=== PATIENT | female | born 1990 | race Two or more races ===

== ENCOUNTER 2024-10-14 11:14 | Emergency (ER) | payer OTHER ==
[~2024-10-14] VITALS: Ht 154.9 cm; Wt 80.1 kg
[2024-10-14 12:12] LABS: Urine Bacteria FEW /hpf (None Seen); Urine Blood Negative /uL (Negative); Urine Clarity Clear (Clear); Urine Color Light-Yellow (Yellow); Urine Protein, UAD Negative (Negative); Urine Specific Gravity 1.018 (1.001-1.035); Urine Urobilinogen Normal (Negative); Urine WBC <1 /hpf (0 - 5)
[2024-10-14 12:17] VITALS: BP 132/93; PULSE 77; RESP 16; TEMP 97.6; O2SAT 100
--- NOTE | 2024-10-14 12:56 | ED.PDOC ---
General HPI Comments A 34 YEAR OLD FEMALE PRESENTS TO THE ED WITH COMPLAINT OF UTI SYMPTOMS. PATIENT STATES SHE HAS BEEN EXPERIENCING A PAINFUL/BURNING SENSATION WITH URINATION FOR THE PAST 2 DAYS. PATIENT REPORTS SHE HAS ALSO HAD SUPRAPUBIC PRESSURE/PAIN FOR THE PAST 2 DAYS. PATIENT DENIES HEMATURIA, FLANK PAIN, VAGINAL DISCHARGE, FEVER, CHILLS, SHORTNESS OF BREATH, CHEST PAIN, ABDOMINAL PAIN, NAUSEA, VOMITING, HEADACHE, OR OTHER COMPLAINTS. NO OTHER SYMPTOMS OR MODIFYING FACTORS AT THIS TIME. PATIENT IS ALERT, ORIENTED X 4, AND HAS STEADY GAIT. Chief Complaint: Urinary Time Seen by MD: 11:35 Reviewed notes: Nurses Notes, Medications, Allergies Allergies: Coded Allergies: NO KNOWN ALLERGIES (Unverified , 10/14/24) Information Source: Patient Mode of Arrival: Ambulatory Severity: Moderate Inability to void: None Timing: Days Duration: Since onset, Days Prehospital treatment: None Onset: Spontaneous Symptoms: Dysuria, Frequency, Urgency History of: None Location: Suprapubic Modifying factors: None associated signs and symptoms: Dysuria, Frequency, Urgency Past Medical History PAST MEDICAL HISTORY: Denies Surgical History: Denies all surgeries RECREATIONAL VEHICLE REPAIRER History: No Pertinent RECREATIONAL VEHICLE REPAIRER History Family History Family History: Reviewed,noncontributory to illness Social History Smoker: Non-Smoker Alcohol: Denies ETOH Use Drugs: Denies Drug Use Lives In: Home Constitutional: denies: chills, diaphoresis, fatigue, fever, malaise, sweats, weakness, others EENTM: denies: blurred vision, double vision, ear bleeding, ear discharge, ear drainage, ear pain, ear ringing, eye pain, eye redness, hearing loss, mouth pain, mouth swelling, nasal discharge, nose bleeding, nose congestion, nose pain, photophobia, tearing, throat pain, throat swelling, voice changes, others Respiratory: denies: cough, hemoptysis, orthopnea, SOB at rest, shortness of breath, SOB with excertion, stridor, wheezing, others Cardiovascular: denies: chest pain, dizzy spells, diaphoresis, Dyspnea on exertion, edema, irregular heart beat, left arm pain, lightheadedness, palpitations, PND, syncope, others Gastrointestinal: denies: abdomen distended, abdominal pain, blood streaked bowels, constipated, diarrhea, dysphagia, difficulty swallowing, hematemesis, melena, nausea, poor appetite, poor fluid intake, rectal bleeding, rectal pain, vomiting, others Genitourinary: reports: burning, dysuria, pain (SUPRAPUBIC PRESSURE); denies: abnormal vagina bleeding, dyspareunia, flank pain, frequency, hematuria, incontinence, , vagina discharge, urgency, others Neurological: denies: dizziness, fainting, headache, left sided numbness, left sided weakness, numbness, paresthesia, pre-existing deficit, right sided numbness, right sided weakness, seizure, speech problems, tingling, tremors, weakness, others Musculoskeletal: denies: back pain, gout, joint pain, joint swelling, muscle pain, muscle stiffness, neck pain, others Integumetry: denies: bruises, change in color, change in hair/nails, dryness, laceration, lesions, lumps, rash, wounds, others Allergic/Immunocompromised: denies: Difficulty Healing, Frequent Infections, Hives, Itching, others Hematologic/Lymphatic: denies: anemia, blood clots, easy bleeding, easy bruising, swollen glands, others Endocrine: denies: excessive hunger, excessive sweating, excessive thirst, excessive urination, flushing, intolerance to cold, intolerance to heat, unexplained weight gain, unexplained weight loss, others Psychiatric: denies: anxiety, bipolar disorder, depression, hopeless, panic d isorder, schizophrenia, sleepless, suicidal, others All Other Systems: Reviewed and Negative Physical Exam General Appearance: No Apparent Distress, Normal HEENT: Normal ENT Inspection, PERRL/EOMI, Pharynx Normal, TMs Normal Neck: Full Range of Motion, Non-Tender, Normal, Normal Inspection Respiratory: Chest Non-Tender, Lungs Clear, No Accessory Muscle Use, No Respiratory Distress, Normal Breath Sounds Cardiovascular: No Edema, No JVD, No Murmur, No Gallop, Normal Peripheral Pulses, Regular Rate/Rhythm Breast Exam: Deferred Gastrointestinal: No Organomegaly, No Pulsatile Mass, Normal Bowel Sounds, Soft, Suprapubic (PRESSURE. ), Tenderness Genitalia: Deferred Pelvic: Deferred Rectal: Deferred Extremities: No calf tenderness, Normal capillary refill, Normal inspection, Normal range of motion, Non-tender, No pedal edema Musculoskeletal : Apperance: Normal Neurologic: Alert, composition mixer II-XII nml as Tested, No Motor Deficits, Normal Affect, Normal Mood, No Sensory Deficits Cerebellar Function: Normal Reflexes: Normal Skin: Dry, Normal Color, Warm Peripheral Pulses: 2+ carotid (R), 2+ carotid (L) Lymphatic: No Adenopathy Was a procedure done? Was a procedure done?: No Differential Diagnosis Kidney stone (Female): N/A Kidney stone (Male): N/A Penile/Scrotal: N/A Urinary Problem (Male): N/A Urinary Problem (Female): Intrauterine , Pyelonephritis, Urolithiasis, UTI, Vaginitis X-Ray, Labs, Meds, VS Vital Signs Date Time Temp Pulse Resp B/P (MAP) Pulse Ox O2 Delivery O2 Flow Rate FiO2 10/14/24 12:17 77 16 100 Room Air 10/14/24 12:17 97.6 77 16 132/93 (106) 100 97.6 10/14/24 12:03 97.6 77 16 132/93 (106) 100 Lab Test 10/14/24 13:42 10/14/24 11:55 Range/Units White Blood Count 5.0 4.4-10.8 10^3/uL Red Blood Count 4.80 4.0-5.20 10^6/uL Hemoglobin 12.3 12.2-16.2 g/dL Hematocrit 38.5 36.0-46.0 % Mean Corpuscular Volume 80.2 80.0-100.0 fL Mean Corpuscular Hemoglobin 25.7 L 28.0-32.0 pg Mean Corpuscular Hemoglobin Concent 32.0 32.0-36.0 g/dL Red Cell Distribution Width 15.7 H 11.8-14.3 % Platelet Count 305 140-450 10^3/uL Mean Platelet Volume 8.5 6.9-10.8 fL Neutrophils (%) (Auto) 57.9 37.0-80.0 % Lymphocytes (%) (Auto) 34.0 10.0-50.0 % Monocytes (%) (Auto) 6.4 0.0-12.0 % Eosinophils (%) (Auto) 0.8 0.0-7.0 % Basophils (%) (Auto) 0.9 0.0-2.0 % Neutrophils # (Auto) 2.9 1.6-8.6 10 ^3/uL Lymphocytes # (Auto) 1.7 0.4-5.4 10 ^3/uL Monocytes # (Auto) 0.3 0-1.3 10 ^3/uL Eosinophils # (Auto) 0 0-0.8 10 ^3/uL Basophils # (Auto) 0 0-0.2 10 ^3/uL Nucleated Red Blood Cells 0.1 % Beta HCG, Quantitative Pending Urine Color Light-yellow Yellow Urine Clarity Clear Clear Urine pH 7.0 5.0-9.0 Urine Specific [place] 1.018 1.001-1.035 Urine Protein Negative Negative Urine Ketones Negative Negative Urine Blood Negative Negative /uL Urine Nitrite Negative Negative Urine Bilirubin Negative Negative Urine Urobilinogen Normal Negative mg/dL Urine Leukocyte Esterase Negative Negative /uL Urine RBC 1 0 - 4 /hpf Urine WBC <1 0 - 5 /hpf Urine Squamous Epithelial Cells Few <5 /hpf Urine Bacteria Few H None Seen /hpf Urine Glucose Normal Normal mg/dL Urine Test Positive Negative OB ULTRASOUND <14 WEEKS: HISTORY: PELVIC PAIN TECHNIQUE: Multiple real-time grayscale sonographic images of the pelvis with duplex Doppler color flow, spectral and M-mode analysis. TRANSDUCERS: Transabdominal and transvaginal COMPARISON: None FINDINGS: The uterus measures 10.5 x 6.4 x 5.5 cm The cervix is not visualized Right ovary measures 3.2 x 1.7 x 3.0 cm with normal Doppler color flow. Probable right ovarian corpus luteal cyst measures 2.3 cm. Left ovary measures 3.0 x 1.5 x 2.3 cm with normal Doppler color flow. Possible early single IUP with gestational sac size of 0.79 cm. No pole is present at this time. heart rate is not detected at this time. Yolk sac is present. Amniotic fluid is subjectively within normal limits. Kasey-gestational space: Unremarkable IMPRESSION: Gestational sac within the uterus with no identifiable pole. This may be senior sales representative of a blighted versus early . Correlation with follow-up beta hCG levels. Follow-up ultrasound could be performed if clinically indicated. ATED BY: ROBERTO LONG MD DICTATED DATE/TIME: 10/14/241401 SIGNED BY: ROBERTO LONG MD SIGNED DATE/TIME: 10/14/241401 CC: X-Ray, Labs, Meds, VS Comment LABS ORDERED: UA, URINE , CBC, BETA HCG QUANT REVIEWED AND INTERPRETED RESULTS: HCG URINE POSITIVE PATIENT'S IMAGING RESULTS WERE REVIEWED BY ME AND I AGREE WITH THE RADIOLOGIST'S INTERPRETATION. PATIENT STATED SHE DID NOT WANT TO WAIT FOR HER BETA HCG QUANT RESULT TO COME BACK AND WOULD PREFER TO BE DISCHARGED AT THIS TIME. I HAVE DISCUSSED THE PATIENT'S ULTRASOUND RESULTS WITH HER AND SHE WAS FULLY AWARE AND UNDERSTANDS. PATIENT WILL BE DISCHARGED HOME AND I HAVE ADVISED HER TO FOLLOW UP WITH HER PCP AND ASSOCIATE PROFESSOR OF PATHOLOGY IN 1-2 DAYS. Images Reviewed?: Images reviewed and evaluated by me Time of 1ST Reevaluation: 14:22 Reevaluation 1ST: Improved Patient Education/Counseling: Diagnosis, Treatment, Need For Follow Up Family Education/Counseling: Diagnosis, Treatment, Need For Follow Up Medical Screening: No EMC Exist At This Time Departure 1 Departure Time of Disposition: 14:30 Impression: Primary Impression: Early stage of Additional Impression: UTI symptoms Disposition: 01 HOME / SELF CARE / HOMELESS Condition: Stable Additional Instructions: FOLLOW-UP WITH PCP AND ASSOCIATE PROFESSOR OF PATHOLOGY IN 1 TO 2 DAYS. TAKE MEDICATIONS PRESCRIBED. RETURN TO ED FOR ANY NEW OR WORSENING SYMPTOMS. Discharged With: Self Critical Care Note Critical Care Time?: No Stability Stability form required: No I personally scribed for YOUNG VERA ([email or web address]) on 10/14/24 at 12:56. Elect ronically submitted by Marco Antonio Celis ([email or web address]). I personally scribed for YOUNG VERA ([email or web address]) on 10/14/24 at 14:19. Elect justinically submitted by Marco Antonio Celis ([email or web address]). YOUNG VERA Oct 14, 2024 12:56
[2024-10-14 13:57] LABS: Basophils # (auto) 0 10 ^3/uL (0-0.2); Eosinophils # (auto) 0 10 ^3/uL (0-0.8); Monocytes # (auto) 0.3 10 ^3/uL (0-1.3); Neutrophils % (auto) 57.9 % (37.0-80.0)
[2024-10-14 13:59] LABS: Basophils % (auto) 0.9 % (0.0-2.0); Eosinophils % (auto) 0.8 % (0.0-7.0); Hematocrit 38.5 % (36.0-46.0); Hemoglobin 12.3 g/dL (12.2-16.2); Lymphocytes # (auto) 1.7 10 ^3/uL (0.4-5.4); Mean Corpuscular Hemoglobin 25.7 pg (28.0-32.0); Mean Corpuscular Volume 80.2 fL (80.0-100.0); Monocytes % (auto) 6.4 % (0.0-12.0); Neutrophils # (auto) 2.9 10 ^3/uL (1.6-8.6); Nucleated Red Blood Cells % 0.1 %; Platelet Count (auto) 305 10^3/uL (140-450); Red Cell Distribution Width 15.7 % (11.8-14.3)
--- NOTE | 2024-10-14 14:06 | DVH ---
OB ULTRASOUND <14 WEEKS: HISTORY: PELVIC PAIN TECHNIQUE: Multiple real-time grayscale sonographic images of the pelvis with duplex Doppler color f low, spectral and M-mode analysis. TRANSDUCERS: Transabdominal and transvaginal COMPARISON: None FINDINGS: The uterus measures 10.5 x 6.4 x 5.5 cm The cervix is not visualized Right ovary measures 3.2 x 1.7 x 3.0 cm with normal Doppler color flow. Probable right ovarian corpus luteal cyst measures 2.3 cm. Left ovary measures 3.0 x 1.5 x 2.3 cm with normal Doppler color flow. Possible early single IUP with gestational sac size of 0.79 cm. No pole is present at this noe e. heart rate is not detected at this time. Yolk sac is present. Amniotic fluid is subjectively within normal limits. Kasey-gestational space: Unremarkable IMPRESSION: Gestational sac within the uterus with no identifiable pole. This may be service representative of a b lighted versus early . Correlation with follow-up beta hCG levels. Follow-up ultra sound could be performed if clinically indicated.
== END 2024-10-14 14:28 | disposition home or self-care (01) ==
LOC: ER 11:14
DX: O23.31 Infections of other parts of urinary tract in pregnancy, first trimester (principal); N39.0 Urinary tract infection, site not specified; Z3A.00 Weeks of gestation of pregnancy not specified
CPT/HCPCS: 36415; 76801; 81001; 81025; 84702; 85025

== ENCOUNTER 2025-04-30 10:27 | Outpatient (CLI) | payer OTHER ==
[2025-04-30 11:02] LABS: Basophils # (auto) 0 10 ^3/uL (0-0.2); Basophils % (auto) 0.6 % (0.0-2.0); Eosinophils # (auto) 0 10 ^3/uL (0-0.8); Eosinophils % (auto) 0.3 % (0.0-7.0); Hematocrit 39.2 % (36.0-46.0); Hemoglobin 13.1 g/dL (12.2-16.2); Lymphocytes # (auto) 1.1 10 ^3/uL (0.4-5.4); Lymphocytes % (auto) 20.1 % (10.0-50.0); Mean Corpuscular Hemoglobin 27.5 pg (28.0-32.0); Mean Corpuscular Hgb Conc. 33.4 g/dL (32.0-36.0); Mean Corpuscular Volume 82.3 fL (80.0-100.0); Monocytes # (auto) 0.3 10 ^3/uL (0-1.3); Monocytes % (auto) 6.6 % (0.0-12.0); Neutrophils # (auto) 3.9 10 ^3/uL (1.6-8.6); Neutrophils % (auto) 72.4 % (37.0-80.0); Platelet Count (auto) 213 10^3/uL (140-450); Red Blood Cells 4.77 10^6/uL (4.0-5.20); Red Cell Distribution Width 16.7 % (11.8-14.3); White Blood Cell 5.3 10^3/uL (4.4-10.8)
[2025-04-30 11:33] LABS: Alanine Aminotransferase 10 U/L (7-40); Alkaline Phosphatase 110 U/L (46-116); Anion Gap 10 (5-15); BUN/Creatinine Ratio 12.5 (10.0-20.0); Calcium 9.7 mg/dL (8.7-10.4); Carbon Dioxide 20 mmol/L (20-31); Glucose 105 mg/dL (74-106); Potassium 3.7 mmol/L (3.5-5.1); Sodium 139 mmol/L (136-145); Total Protein 6.9 g/dL (5.7-8.2)
[2025-04-30 11:35] LABS: Aspartate Aminotransferase 12 U/L (13-40); Blood Urea Nitrogen 7 mg/dL (9-23); Chloride 109 mmol/L (98-107)
[2025-04-30 11:36] LABS: Bilirubin, Total 0.3 mg/dL (0.2-1.0)
[2025-04-30 11:37] LABS: Thyroid Stimulating Hormone 0.94 uIU/mL (0.55-4.78)
[2025-04-30 11:46] LABS: Beta HCG, Quantitative 7632.2 mIU/mL (1.5-4.2)
[2025-04-30 11:52] LABS: Amphetamine Screen, Urine Neg (NEGATIVE); Barbiturate Scree,Urine Neg (NEGATIVE); Benzodiazephine Screen, Urine Neg (NEGATIVE); Cannabinoid Screen, Urine Neg (NEGATIVE); Cocaine Screen, Urine Neg (NEGATIVE); Opiate Scree,Urine Neg (NEGATIVE); Phencyclidine Screen, Urine Neg (NEGATIVE)
[2025-05-01] MEDS ORDERED: PREN1TAB71 OR (11:57)
[2025-05-01] MEDS ORDERED: ASPI-543 PO (11:57)
[2025-05-01] MEDS ORDERED: OMEP20TA PO (11:58)
[2025-05-01] MEDS ORDERED: INSUINJ2 SC (11:58)
[2025-05-01 12:07] LABS: Varicella Zoster IgG Antibody Reactive (Non Reactive)
[2025-05-01 23:07] LABS: Chlamydia Trachomatis, NAA Negative (Negative); Neisseria gonorrhoeae, NAA Negative (Negative)
== END 2025-04-30 17:00 | disposition home or self-care (01) ==
LOC: LAB 10:27
DX: Z34.80 Encounter for supervision of other normal pregnancy, unspecified trimester (principal); Z36.0 Encounter for antenatal screening for chromosomal anomalies; Z31.430 Encounter of female for testing for genetic disease carrier status for procreative management; N39.0 Urinary tract infection, site not specified; Z3A.00 Weeks of gestation of pregnancy not specified
CPT/HCPCS: 36415; 80053; 80307; 83036; 84439; 84443; 84702; 85025; 86703; 86762; 86780; 86787; 86850; 86870; 86900; 86901; 87086; 87340; 87902

== ENCOUNTER 2025-05-01 06:01 | Observation (INO) | payer OTHER ==
--- NOTE | 2025-05-01 11:25 | DVH ---
BIOPHYSICAL PROFILE HISTORY: GDMA2 TECHNIQUE: Multiple transabdominal real-time grayscale sonographic images through the gravid uterus of the fetus with duplex Doppler color flow and M-mode spectral analysis FINDINGS: BIOPHYSICAL PROFILE: breathing score: 2 movement score: 2 tone score: 2 Quantitative HORTENSIA score: 2 (HORTENSIA: 15.3 Cm.) Total score: 8 The cervix not well visualized. Single live fetus in cephalic presentation. heart rate 139 beats per minute. Anterior placenta without previa or abruption IMPRESSION: Biophysical profile score: 8/8
[2025-05-01] MEDS ORDERED: ASPI-543 PO (11:57)
[2025-05-01] MEDS ORDERED: PREN1TAB71 OR (11:57)
[2025-05-01] MEDS ORDERED: INSUINJ2 SC (11:58)
[2025-05-01] MEDS ORDERED: OMEP20TA PO (11:58)
--- NOTE | 2025-05-01 13:55 | DVHDS2 ---
Physician Discharge Progress N Final Diagnosis: testing for GDM, A2 and Late Entry PNC Operations or Procedures: Operations or Procedures 34yo IUP@33.5wks VSS NST reactive FKC/PTL precautions reviewed. Other Interventions Other Interventions [address] [address] Ph: [phone] DIAGNOSTIC IMAGING Diagnostic Imaging Report : [id number] Signed PATIENT: FRANSISCO KING DACCT: [id number] UNIT: [id number] : 1990 LOC: LD ROOM / BED: TRIAGE3 / A AGE / SEX: 34 / F ADM STATUS: ADM IN SERVICE 1007 ORDERING PHYSICIAN: MENA DIAZ CNM PROCEDURE(s): BPP - BIOPHYSICAL PROFILE REASON: GDMA2 ORDER NUMBER(s): [id number], ACCESSION NUMBER(s): [id number] BIOPHYSICAL PROFILE HISTORY: GDMA2 TECHNIQUE: Multiple transabdominal real-time grayscale sonographic images through the gravid uterus of the fetus with duplex Doppler color flow and M-mode spectral analysis FINDINGS: BIOPHYSICAL PROFILE: breathing score: 2 movement score: 2 tone score: 2 Quantitative HORTENSIA score: 2 (HORTENSIA: 15.3 Cm.) Total score: 8 The cervix not well visualized. Single live fetus in cephalic presentation. heart rate 139 beats per minute. Anterior placenta without previa or abruption IMPRESSION: Biophysical profile score: 8/8 ATED BY: LUIS ANTONIO GARCIA MD DICTATED DATE/TIME: 05/01/25 1123 SIGNED BY: LUIS ANTONIO GARCIA MD SIGNED DATE/TIME: 05/01/25 112 CC: Condition on Discharge: Stable Disposition: Home Discharge Instructions: Diet: Consistent carbohydrate Activity: No Restrictions, As Tolerated Medications: see med list Follow Up Care: Specialist: f/u in 3 days Discharge Statement: "Patient was advised to return to the ER or call 911 if any headaches, dizziness, shortness of breath, chest pain, abdominal pain, bleeding, fevers, or worsening of medical condition. Patient was counseled about treatment plan, medications, possible side effects, patientverbalized understanding. All questions were answered to the best of my ability. This discharge took greater then 30 minutes in planning, reviewing documentatio n, counseling the patient, and discussing with other team members." Visit Coding OBGYN Date of Service: May 01, 2025 Billing Provider: MENA DIAZ CNM ELECTRONIC PAGE MAKEUP SYSTEM OPERATOR Common Visit Codes: 04129-MMWHDGR OBS CARE (HIGH) ELECTRONIC PAGE MAKEUP SYSTEM OPERATOR Procedure Codes: 55347-88- NON-STRESS TEST MENA DIAZ CNM May 01, 2025 13:55
== END 2025-05-01 12:20 | disposition home or self-care (01) ==
LOC: LDRP 09:53 → UNDOADMOB 09:53 → LDRP 10:14
PROVIDERS: ADMIT Obstetrics & Gynecology; ATTEND Obstetrics & Gynecology
DX: O24.419 Gestational diabetes mellitus in pregnancy, unspecified control (principal); Z3A.33 33 weeks gestation of pregnancy; Z79.899 Other long term (current) drug therapy; Z98.890 Other specified postprocedural states
CPT/HCPCS: 76818; 81002; 82948; 82962; G0378; 59025; 76819

== ENCOUNTER 2025-05-04 07:19 | Observation (INO) | payer OTHER ==
[~2025-05-04 07:19] MED LIST: ASPI-543 PO; INSUINJ2 SC; OMEP20TA PO; PREN1TAB71 OR
--- NOTE | 2025-05-04 14:18 | DVH ---
BIOPHYSICAL PROFILE HISTORY: GDMA2 Comparison Study: US BIOPHYSICAL PROFILE on DOS: 05/01/25 TECHNIQUE: Multiple real-time grayscale sonographic images through the gravid uterus of the fetus wi th duplex Doppler color flow and M-mode spectral analysis FINDINGS: BIOPHYSICAL PROFILE: breathing score: 2 movement score: 2 tone score: 2 Quantitative HORTENSIA score: 2 (HORTENSIA: 14.0 Cm.) Total score: 8 The cervix is not visualized Single live fetus in cephalic presentation. heart rate 148 beats per minute. Grade 2, anterior placenta without previa or abruption Biophysical profile score 8/8 IMPRESSION: Biophysical profile score: 8/8 Possible nuchal cord.
--- NOTE | 2025-05-04 15:56 | DVHDS2 ---
Physician Discharge Progress N Final Diagnosis: GDMA2 Operations or Procedures: Operations or Procedures NST/BPP HORTENSIA Commentary: Commentary status reassuring Condition on Discharge: Stable Disposition: Home Discharge Instructions: Diet: Consistent carbohydrate Activity: Light activity Follow Up/Referral: as scheduled Medications: N/A Follow Up Care: Discharge Statement: "Patient was advised to return to the ER or call 911 if any headaches, dizziness, shortness of breath, chest pain, abdominal pain, bleeding, fevers, or worsening of medical condition. Patient was counseled about treatment plan, medications, possible side effects, patientverbalized understanding. All questions were answered to the best of my ability. This discharge took greater then 30 minutes in planning, reviewing documentation, counseling the patient, and discussing with other team members." Visit Coding OBGYN Date of Service: May 04, 2025 Billing Provider: JESSI MULLEN DO CONTINUITY MANAGER Common Visit Codes: 71963-IZT/OBS SAME DATE (MOD) CONTINUITY MANAGER Procedure Codes: 43088-37- NON-STRESS TEST JESSI MULLEN DO May 04, 2025 15:56
== END 2025-05-04 14:32 | disposition home or self-care (01) ==
LOC: LDRP 12:50 → UNDOADMOB 12:50 → LDRP 13:00
PROVIDERS: ADMIT Obstetrics & Gynecology; ATTEND Obstetrics & Gynecology
DX: O24.419 Gestational diabetes mellitus in pregnancy, unspecified control (principal); Z3A.34 34 weeks gestation of pregnancy; Z79.899 Other long term (current) drug therapy
CPT/HCPCS: 76818; 81002; 82948; G0378; 59025; 76819

== ENCOUNTER 2025-05-07 06:28 | Observation (INO) | payer OTHER ==
--- NOTE | 2025-05-07 11:35 | DVH ---
CLINICAL HISTORY: Gestational diabetes. COMPARISON: US BIOPHYSICAL PROFILE on DOS: 05/04/25, US BIOPHYSICAL PROFILE on DOS: 05/01/25 TECHNIQUE: biophysical profile was performed. Transabdominal sonographic images of the fetus we re obtained. FINDINGS: The fetus is in cephalic position. heart rate measures 144 BPM. Amniotic fluid index measures 11.0 cm. The placenta is anterior in position. BPP profile is an overall score of 8/8, with 2/2 points for breathing, with at least one episode of breathing over a 30 second duration during a 30 minute observation, 2/2 points for m ovements, with 3 or more discrete body or limb movements, 2/2 points for tone, with one or more episodes of extremity extension with return to flexion, or opening and closing of hand, and 2/ 2 points for amniotic fluid, with at least 1 pocket of amniotic fluid that measures 2 cm in 2 perpend icular planes. IMPRESSION: BPP score of 8/8.
--- NOTE | 2025-05-07 23:06 | DVHDS2 ---
Discharge Summary Date of Admission May 07, 2025 at 10:27 Date of Discharge: May 07, 2025 Admitting Diagnosis Thirty-four weeks for some GDM A2 Labs/Diagnostic Data: Laboratory Results Test 05/07/25 10:58 POC Glucose 110 mg/dl (70-106) Brief Hx & Hospital Course: Thirty-four weeks for some GDM A2 Condition at Discharge: Good Final Diagnosis/Problems List Thirty-four weeks for some GDM A2 Discharge Disposition: Home Discharge Instruct/Medications Diet: Consistent carbohydrate Activity: Light activity Discharge Statement: "Patient was advised to return to the ER or call 911 if any headaches, dizziness, shortness of breath, chest pain, abdominal pain, bleeding, fevers, or worsening of medical condition. Patient was counseled about treatment plan, medications, possible side effects, patientverbalized understanding. All questions were answered to the best of my ability. This discharge took greater then 30 minutes in planning, reviewing documentation, counseling the patient, and discussing with other team members." ASSESSMENT ASSESSMENT Assessment Visit Coding OBGYN Date of Service: May 07, 2025 Billing Provider: SANTOS DIAZ DO EFFICIENCY CLERK Common Visit Codes: 93216-[id number] INP/OBS CARE(MOD), 67662-MME/OBS SAME DATE (LOW), 45614-PAB/OBS SAME DATE (HIGH) EFFICIENCY CLERK Procedure Codes: 97955-62- NON-STRESS TEST SANTOS DIAZ DO May 07, 2025 23:06
== END 2025-05-07 11:53 | disposition home or self-care (01) ==
LOC: UNDOADMOB 10:18 → LDRP 10:18 → UNDODISOB 11:53
PROVIDERS: ADMIT Obstetrics & Gynecology; ATTEND Obstetrics & Gynecology
DX: O24.419 Gestational diabetes mellitus in pregnancy, unspecified control (principal); Z98.890 Other specified postprocedural states; Z79.899 Other long term (current) drug therapy; Z3A.34 34 weeks gestation of pregnancy
CPT/HCPCS: 76818; 81002; 82948; 82962; 94760; G0378; 59025; 76819

== ENCOUNTER 2025-05-11 12:41 | Observation (INO) | payer OTHER ==
--- NOTE | 2025-05-11 14:15 | DVHDS2 ---
Physician Discharge Progress N Final Diagnosis: gdm Operations or Procedures: Operations or Procedures nst reactive reviwed,sono Condition on Discharge: Good Disposition: Home Discharge Instructions: Diet: Consistent carbohydrate Activity: No Restrictions, As Tolerated Medications: na Follow Up Care: Specialist: 1w Discharge Statement: "Patient was advised to return to the ER or call 911 if any headaches, dizziness, shortness of breath, chest pain, abdominal pain, bleeding, fevers, or worsening of medical condition. Patient was counseled about treatment plan, medications, possible side effects, patientverbalized understanding. All questions were answered to the best of my ability. This discharge took greater then 30 minutes in planning, reviewing documentation, counseling the patient, and discussing with other team members." Visit Coding OBGYN Date of Service: May 11, 2025 Billing Provider: JERONIMO DEJESUS DO LIFT ELECTRICIAN Common Visit Codes: 69722-AJWQIEB OBS CARE (HIGH) LIFT ELECTRICIAN Procedure Codes: 08175-45- NON-STRESS TEST JERONIMO DEJESUS DO May 11, 2025 14:15
[2025-05-11 14:18] LABS: Basophils # (auto) 0 10 ^3/uL (0-0.2); Basophils % (auto) 0.4 % (0.0-2.0); Eosinophils # (auto) 0 10 ^3/uL (0-0.8); Eosinophils % (auto) 0.5 % (0.0-7.0); Hematocrit 39.4 % (36.0-46.0); Hemoglobin 13.1 g/dL (12.2-16.2); Lymphocytes # (auto) 1.3 10 ^3/uL (0.4-5.4); Lymphocytes % (auto) 26.2 % (10.0-50.0); Mean Corpuscular Hemoglobin 27.4 pg (28.0-32.0); Mean Corpuscular Hgb Conc. 33.3 g/dL (32.0-36.0); Mean Corpuscular Volume 82.4 fL (80.0-100.0); Monocytes # (auto) 0.4 10 ^3/uL (0-1.3); Monocytes % (auto) 8.1 % (0.0-12.0); Neutrophils # (auto) 3.2 10 ^3/uL (1.6-8.6); Neutrophils % (auto) 64.8 % (37.0-80.0); Nucleated Red Blood Cells % 0.1 %; Platelet Count (auto) 216 10^3/uL (140-450); Red Blood Cells 4.79 10^6/uL (4.0-5.20); Red Cell Distribution Width 16.9 % (11.8-14.3); White Blood Cell 4.9 10^3/uL (4.4-10.8)
--- NOTE | 2025-05-11 14:21 | DVH ---
CLINICAL HISTORY: Gestational diabetes. COMPARISON: US BIOPHYSICAL PROFILE on DOS: 05/07/25, US BIOPHYSICAL PROFILE on DOS: 05/04/25, US BIOPHY SICAL PROFILE on DOS: 05/01/25 TECHNIQUE: biophysical profile was performed. Transabdominal sonographic images of the fetus we re obtained. FINDINGS: The fetus is in cephalic position. heart rate measures 153 BPM. Amniotic fluid index measures 11.6 cm. The placenta is anterior in position without evidence of previa or abruption. BPP profile is an overall score of 8/8, with 2/2 points for breathing, with at least one episode of breathing over a 30 second duration during a 30 minute observation, 2/2 points for m ovements, with 3 or more discrete body or limb movements, 2/2 points for tone, with one or more episodes of extremity extension with return to flexion, or opening and closing of hand, and 2/ 2 points for amniotic fluid, with at least 1 pocket of amniotic fluid that measures 2 cm in 2 perpend icular planes. IMPRESSION: BPP score of 8/8.
[2025-05-11 14:25] LABS: Alanine Aminotransferase 11 U/L (7-40); Anion Gap 10 (5-15); Aspartate Aminotransferase 15 U/L (<34); BUN/Creatinine Ratio 12.3 (10.0-20.0); Calcium 9.5 mg/dL (8.7-10.4); Carbon Dioxide 22 mmol/L (20-31); Chloride 105 mmol/L (98-107); Glucose 88 mg/dL (74-106); Sodium 137 mmol/L (136-145); Total Protein 6.8 g/dL (5.7-8.2); Uric Acid 5.4 mg/dL (3.1-7.8)
[2025-05-11 14:26] LABS: Albumin 3.9 g/dL (3.2-4.8); Alkaline Phosphatase 122 U/L (46-116); Bilirubin, Total 0.3 mg/dL (0.2-1.0); Blood Urea Nitrogen 8 mg/dL (9-23)
[2025-05-11 14:27] LABS: INR 0.97 (0.9-1.15); Partial Thromboplastin Time 29.4 SEC (24.5-34.5); Prothrombin Time 10.3 sec (9.3-11.8)
== END 2025-05-11 14:50 | disposition home or self-care (01) ==
LOC: UNDOADMOB 12:41 → LDRP 12:41
PROVIDERS: ADMIT Obstetrics & Gynecology; ATTEND Obstetrics & Gynecology
DX: O26.643 Intrahepatic cholestasis of pregnancy, third trimester (principal); K83.1 Obstruction of bile duct; O24.419 Gestational diabetes mellitus in pregnancy, unspecified control; Z3A.35 35 weeks gestation of pregnancy; Z79.899 Other long term (current) drug therapy; Z98.890 Other specified postprocedural states
CPT/HCPCS: 36415; 76818; 80053; 81002; 82948; 84550; 85025; 85610; 85730; 94760; G0378; 59025; 76819

== ENCOUNTER 2025-05-15 07:11 | Observation (INO) | payer OTHER ==
[~2025-05-15] VITALS: Ht 154.9 cm; Wt 93.0 kg
--- NOTE | 2025-05-15 11:46 | DVH ---
BIOPHYSICAL PROFILE HISTORY: GDMA2 TECHNIQUE: Multiple transabdominal real-time grayscale sonographic images through the gravid uterus of the fetus with duplex Doppler color flow and M-mode spectral analysis FINDINGS: BIOPHYSICAL PROFILE: breathing score: 2 movement score: 2 tone score: 2 Quantitative HORTENSIA score: 2 (HORTENSIA: 13.5 Cm.) Total score: 8 The cervix not well visualized. Single live fetus in cephalic presentation. heart rate 169 beats per minute. Anterior placenta without previa or abruption IMPRESSION: Biophysical profile score: 8/8
--- NOTE | 2025-05-15 14:30 | DVHDS2 ---
Physician Discharge Progress N Final Diagnosis: testing for GDM, A2 & cholestasis Operations or Procedures: Operations or Procedures 34yo IUP@35+wks VSS NST reactive FKC/PTL precautions reviewed. Dr. Quigley consulted, agrees with POC. Other Interventions Other Interventions [facility] [address] [place] [address] Ph: [phone] DIAGNOSTIC IMAGING Diagnostic Imaging Report : [id number] Signed PATIENT: FRANSISCO KING DACCT: [id number] UNIT: [id number] : 1990 LOC: [facility] ROOM / BED: TRIAGE2 / A AGE / SEX: 34 / F ADM STATUS: ADM IN SERVICE 1106 ORDERING PHYSICIAN: MENA DIAZ CNM PROCEDURE(s): BPP - BIOPHYSICAL PROFILE REASON: GDMA2 ORDER NUMBER(s): [id number], ACCESSION NUMBER(s): [id number] BIOPHYSICAL PROFILE HISTORY: GDMA2 TECHNIQUE: Multiple transabdominal real-time grayscale sonographic images through the gravid uterus of the fetus with duplex Doppler color flow and M-mode spectral analysis FINDINGS: BIOPHYSICAL PROFILE: breathing score: 2 movement score: 2 tone score: 2 Quantitative HORTENSIA score: 2 (HORTENSIA: 13.5 Cm.) Total score: 8 The cervix not well visualized. Single live fetus in cephalic presentation. heart rate 169 beats per minute. Anterior placenta without previa or abruption IMPRESSION: Biophysical profile score: 8/8 ATED BY: LUIS ANTONIO GARCIA MD DICTATED DATE/TIME: 05/15/25 1144 SIGNED BY: LUIS ANTONIO GARCIA MD SIGNED DATE/TIME: 05/15/25 1144 CC: Condition on Discharge: Stable Disposition: Home Discharge Instructions: Diet: Consistent carbohydrate Activity: No Restrictions, As Tolerated Follow Up/Referral: Wednesday05/18/25 1300 Medications: see med list Follow Up Care: Specialist: f/u twice weekly Discharge Statement: "Patient was advised to return to the ER or call 911 if any headaches, dizziness, shortness of breath, chest pain, abdominal pain, bleeding, fevers, or worsening of medical condition. Patient was counseled about treatment plan, medications, possible side effects, patientverbalized understanding. All questions were answered to the best of my ability. This discharge took greater then 30 minutes in planning, reviewing documentation, counseling the patient, and discussing with other team members." Visit Coding OBGYN Date of Service: May 15, 2025 Billing Provider: MENA DIAZ CNM PLASMA PROCESSOR Common Visit Codes: 28209-EMCNJDR OBS CARE (HIGH) PLASMA PROCESSOR Procedure Codes: 40222-13- NON-STRESS TEST MENA DIAZ CNM May 15, 2025 14:30
== END 2025-05-15 12:39 | disposition home or self-care (01) ==
LOC: UNDOADMOB 10:55 → LDRP 10:55 → UNDODISOB 12:39
PROVIDERS: ADMIT Obstetrics & Gynecology; ATTEND Obstetrics & Gynecology
DX: O24.419 Gestational diabetes mellitus in pregnancy, unspecified control (principal); O26.643 Intrahepatic cholestasis of pregnancy, third trimester; K83.1 Obstruction of bile duct; Z3A.35 35 weeks gestation of pregnancy; Z98.890 Other specified postprocedural states; Z79.899 Other long term (current) drug therapy
CPT/HCPCS: 76818; 81002; 82948; 82962; 94760; G0378; 59025; 76819

== ENCOUNTER 2025-05-18 13:02 | Observation (INO) | payer OTHER ==
--- NOTE | 2025-05-18 14:39 | DVH ---
OB ULTRASOUND <14 WEEKS: HISTORY: HORTENSIA check, cholestasis TECHNIQUE: Ultrasound obstetrical limited. Multiple real-time grayscale sonographic images of the pelvis with duplex Doppler color flow, spectral and M-mode analysis. TRANSDUCERS: Transabdominal FINDINGS: HORTENSIA: 19 cm ; MVP: 8.13 heart rate detected at 150 beats per minute. position cephalic Placenta anterior Gestational age 36 weeks 1 day JESUS 06/14/2025 IMPRESSION: 1. IUP single live fetus 36 weeks 1 day AUA corresponding to an JESUS of 06/14/2025. 2. HORTENSIA: 13.6 05/15/25 3. FHR: 150 beats per minute 4. HORTENSIA: 19 cm 5. Placenta anterior no placenta previa or placental abruption.
[2025-05-18] MEDS ORDERED: URSO300C2 PO (14:52)
--- NOTE | 2025-05-18 15:16 | DVH ---
BIOPHYSICAL PROFILE HISTORY: GDMA2/Marylu TECHNIQUE: Multiple transabdominal real-time grayscale sonographic images through the gravid uterus of the fetus with duplex Doppler color flow and M-mode spectral analysis FINDINGS: BIOPHYSICAL PROFILE: breathing score: 2 movement score: 2 tone score: 2 Quantitative HORTENSIA score: 2 (HORTENSIA: 19 Cm.) Total score: 8/8 The cervix not visualized Single live fetus in cephalic presentation. heart rate 140 beats per minute. Grade 2 placenta without previa or abruption Single live fetus at 36 weeks 1 day Biophysical profile score 8/8 corresponding to an JESUS of 06/14/2025 IMPRESSION: 1. Biophysical profile score: 8/8 2. FHR: 140
== END 2025-05-18 15:48 | disposition home or self-care (01) ==
LOC: LDRP 13:02 → UNDOADMOB 13:02 → LDRP 13:41
PROVIDERS: ADMIT Obstetrics & Gynecology; ATTEND Obstetrics & Gynecology
DX: O26.643 Intrahepatic cholestasis of pregnancy, third trimester (principal); K83.1 Obstruction of bile duct; O24.419 Gestational diabetes mellitus in pregnancy, unspecified control; Z3A.36 36 weeks gestation of pregnancy; Z79.899 Other long term (current) drug therapy; Z98.890 Other specified postprocedural states
CPT/HCPCS: 76815; 76818; 81002; 82962; 94760; G0378; 59025; 76819

== ENCOUNTER 2025-05-21 02:23 | Observation (INO) | payer OTHER ==
[~2025-05-21 02:23] MED LIST changes: +URSO300C2 PO
--- NOTE | 2025-05-21 10:56 | DVH ---
BIOPHYSICAL PROFILE HISTORY: Cholestasis/GDMA2 Comparison Study: US BIOPHYSICAL PROFILE on DOS: 05/18/25, US BIOPHYSICAL PROFILE on DOS: 05/15/25, US BIOPHYSICAL PROFILE on DOS: 05/11/25, US BIOPHYSICAL PROFILE on DOS: 05/07/25, US BIOPHYSICAL PROFILE o n DOS: 05/04/25 TECHNIQUE: Multiple real-time grayscale sonographic images through the gravid uterus of the fetus wi th duplex Doppler color flow and M-mode spectral analysis FINDINGS: BIOPHYSICAL PROFILE: breathing score: 2 movement score: 2 tone score: 2 Quantitative HORTENSIA score: 2 (HORTENSIA: 16.2 Cm.) Total score: 8 The cervix is not visualized Single live fetus in cephalic presentation. heart rate 138 beats per minute. Grade 2, anterior placenta without previa or abruption IMPRESSION: Biophysical profile score: 8
--- NOTE | 2025-05-22 05:59 | DVHDS2 ---
Discharge Summary Date of Admission May 21, 2025 at 10:04 Date of Discharge: May 21, 2025 Admitting Diagnosis gdma2 cholestasis 36 wks Labs/Diagnostic Data: Laboratory Results Test 05/21/25 10:40 POC Glucose 101 mg/dl (70-106) Brief Hx & Hospital Course: NST performed US reassuring Condition at Discharge: Good Final Diagnosis/Problems List GDM A2 Cholestasis Discharge Disposition: Home Discharge Instruct/Medications Diet: Consistent carbohydrate Activity: No Restrictions, As Tolerated Follow Up/Referral: as scheduled. Scheduled Omeprazole (Gnp Omeprazole), 1 TAB PO DAILY, (Reported) Ursodiol (Ursodiol), 300 MG PO TID, (Reported) Miscellaneous Medications Aspirin (Aspir-Low), 81 MG PO, (Reported) Insulin NPH (Human) (Isophane) (Humulin N), 11 UNIT SC, (Reported) Vit W/ Ferrous Fumara (Pnv Plus Multivi), 1 OR, (Reported) Discharge Statement: "Patient was advised to return to the ER or call 911 if any headaches, dizziness, shortness of breath, chest pain, abdominal pain, bleeding, fevers, or worsening of medical condition. Patient was counseled about treatment plan, medications, possible side effects, patientverbalized understanding. All questions were answered to the best of my ability. This discharge took greater then 30 minutes in planning, reviewing documentation, counseling the patient, and discussing with other team members." ASSESSMENT ASSESSMENT Assessment Visit Coding OBGYN Date of Service: May 21, 2025 Billing Provider: SANTOS DIAZ DO MOMD TEACHER Common Visit Codes: 97010-IZK/OBS SAME DATE (LOW), 81683-XXU/OBS SAME DATE (MOD), 58108-APS/OBS SAME DATE (HIGH) MOMD TEACHER Procedure Codes: 78739-16- NON-STRESS TEST SANTOS DIAZ DO May 22, 2025 05:59
== END 2025-05-21 11:14 | disposition home or self-care (01) ==
LOC: LDRP 10:04
PROVIDERS: ADMIT Obstetrics & Gynecology; ATTEND Obstetrics & Gynecology
DX: O24.419 Gestational diabetes mellitus in pregnancy, unspecified control (principal); K83.1 Obstruction of bile duct; O99.613 Diseases of the digestive system complicating pregnancy, third trimester; Z3A.36 36 weeks gestation of pregnancy; Z98.890 Other specified postprocedural states; Z79.899 Other long term (current) drug therapy
CPT/HCPCS: 76818; 81002; 82948; 82962; 94760; G0378; 59025; 76819

== ENCOUNTER 2025-05-24 09:40 | Observation (INO) | payer OTHER ==
--- NOTE | 2025-05-24 13:36 | DVH ---
BIOPHYSICAL PROFILE HISTORY: Marylu/GDMA2 Comparison Study: US BIOPHYSICAL PROFILE on DOS: 05/21/25, US BIOPHYSICAL PROFILE on DOS: 05/18/25, US BIOPHYSICAL PROFILE on DOS: 05/15/25, US BIOPHYSICAL PROFILE on DOS: 05/11/25, US BIOPHYSICAL PROFILE o n DOS: 05/07/25 TECHNIQUE: Multiple real-time grayscale sonographic images through the gravid uterus of the fetus wi th duplex Doppler color flow and M-mode spectral analysis FINDINGS: BIOPHYSICAL PROFILE: breathing score: 2 movement score: 2 tone score: 2 Quantitative HORTENSIA score: 2 (HORTENSIA: 12.5 Cm.) Total score: 8 The cervix is not visualized Single live fetus in cephalic presentation. heart rate 165 beats per minute. Anterior placenta without previa or abruption IMPRESSION: Biophysical profile score: 8
--- NOTE | 2025-05-25 07:34 | DVHDS2 ---
Physician Discharge Progress N Final Diagnosis: cholestasis of preg 37wks,gdm Operations or Procedures: Operations or Procedures nst reactive reviwed,sono Condition on Discharge: Good Disposition: Home Discharge Instructions: Diet: Consistent carbohydrate Activity: No Restrictions, As Tolerated Medications: na Follow Up Care: Specialist: 2d for induction Discharge Statement: "Patient was advised to return to the ER or call 911 if any headaches, dizziness, shortness of breath, chest pain, abdominal pain, bleeding, fevers, or worsening of medical condition. Patient was counseled about treatment plan, medications, possible side effects, patientverbalized understanding. All questions were answered to the best of my ability. This discharge took greater then 30 minutes in planning, reviewing documentation, counseling the patient, and discussing with other team members." Visit Coding OBGYN Date of Service: May 24, 2025 Billing Provider: JERONIMO DEJESUS DO SHAKER OUT Common Visit Codes: [id number] INP/OBS CARE (HIGH) SHAKER OUT Procedure Codes: 21277-60- NON-STRESS TEST JERONIMO DEJESUS DO May 25, 2025 07:34
== END 2025-05-24 13:55 | disposition home or self-care (01) ==
LOC: LDRP 12:52 → UNDOADMOB 12:52 → LDRP 12:57 → UNDODISOB 13:55
PROVIDERS: ADMIT Obstetrics & Gynecology; ATTEND Obstetrics & Gynecology
DX: O26.643 Intrahepatic cholestasis of pregnancy, third trimester (principal); K83.1 Obstruction of bile duct; O24.419 Gestational diabetes mellitus in pregnancy, unspecified control; Z3A.37 37 weeks gestation of pregnancy; Z79.899 Other long term (current) drug therapy
CPT/HCPCS: 76818; 81002; 82948; 82962; 94760; G0378; 59025; 76819

== ENCOUNTER 2025-05-26 08:45 | Inpatient (IN) | payer OTHER ==
[~2025-05-26] VITALS: Ht 154.9 cm; Wt 93.0 kg
[2025-05-26] MEDS ORDERED: LIDOCAINE 2%HCL (LOCAL ANESTH.) INJ 20ML MDV IJ PRN (09:15)
[2025-05-26] MEDS ORDERED: BUTORPHANOL TARTRATE 2 MG/1 ML VIAL IV PRN ×2 (09:15)
[2025-05-26 10:03] LABS: Hematocrit 41.1 % (36.0-46.0); Hemoglobin 13.5 g/dL (12.2-16.2); Mean Corpuscular Hemoglobin 27.2 pg (28.0-32.0); Mean Corpuscular Volume 82.8 fL (80.0-100.0); Nucleated Red Blood Cells % 0.1 %
[2025-05-26 10:10] LABS: Urine Protein, UAD TRACE (Negative)
[2025-05-26 10:17] LABS: Albumin 4.0 g/dL (3.2-4.8); Anion Gap 12 (5-15); BUN/Creatinine Ratio 13.2 (10.0-20.0); Calcium 9.9 mg/dL (8.7-10.4); Glucose 106 mg/dL (74-106); Potassium 3.9 mmol/L (3.5-5.1); Sodium 140 mmol/L (136-145); Total Protein 6.6 g/dL (5.7-8.2)
[2025-05-26 10:18] LABS: Bilirubin, Total 0.3 mg/dL (0.2-1.0); INR 0.96 (0.9-1.15); Partial Thromboplastin Time 30.0 SEC (24.5-34.5); Prothrombin Time 10.2 sec (9.3-11.8)
[2025-05-26] MEDS: PHISODERM TOP SOLN 240ML BTL TOP PRN (10:22)
[2025-05-26] MEDS: WITCH HAZEL-GLYCERIN PAD TOP PRN (10:22)
[2025-05-26] MEDS: LACTATED RINGER'S 1,000 ML IV SCH (10:23)
[2025-05-26] MEDS: DERMOPLAST 60ML BOTTLE TOP PRN (10:23)
[2025-05-26 10:56] LABS: Amphetamine Screen, Urine Neg (NEGATIVE); Barbiturate Scree,Urine Neg (NEGATIVE); Benzodiazephine Screen, Urine Neg (NEGATIVE); Cannabinoid Screen, Urine Neg (NEGATIVE); Cocaine Screen, Urine Neg (NEGATIVE); Opiate Scree,Urine Neg (NEGATIVE); Phencyclidine Screen, Urine Neg (NEGATIVE)
[2025-05-26 10:56] LABS: Alanine Aminotransferase < 9 U/L (7-40); Alkaline Phosphatase 146 U/L (46-116); Blood Urea Nitrogen 9 mg/dL (9-23); Carbon Dioxide 19 mmol/L (20-31); Chloride 109 mmol/L (98-107)
[2025-05-26] MEDS ORDERED: URSODIOL 300 MG CAP PO SCH (11:00)
[2025-05-26] MEDS: URSODIOL 300 MG CAP PO SCH (12:04)
--- NOTE | 2025-05-26 14:47 | DVHHP ---
ADMIT DATE: 05/26/2025 CHIEF COMPLAINT: Here for induction of labor secondary to cholestasis of . HISTORY OF PRESENT ILLNESS: The patient is a 7, para 4 female with EDC 06/14, estimated gestational age of 37 plus weeks, admitted for induction of labor secondary to cholestasis of . The patient was placed on Actigall b.i.d. despite which she continued itching. The Actigall was up to three times a day, but the patient was quite miserable, still itching. She was seen by Dr. Zacarias. She has advanced maternal age and has class A2 diabetes. Her bile acid labs were never done. The patient has clinical findings consistent with cholestasis worsening, not fully responding to Actigall, subsequently the patient is admitted for induction of labor. PAST MEDICAL HISTORY: Gestational diabetes. PAST SURGICAL HISTORY: 2 D and C. SOCIAL HISTORY: None. FAMILY HISTORY: None. OBSTETRIC AND GYNECOLOGIC HISTORY: Two termination of , one spontaneous , four vaginal deliveries. ALLERGIES: No known drug allergies. REVIEW OF SYSTEMS: Consistent with HPI. PHYSICAL EXAMINATION: VITAL SIGNS: Stable, afebrile. HEENT: Within normal limits. CARDIOVASCULAR: Regular rate and rhythm. LUNGS: Clear to auscultation. BREASTS: Symmetrical. No masses. ABDOMEN: Gravid. Positive heart. PELVIC: Cervix fingertip, soft, -3. EXTREMITIES: No clubbing, cyanosis, or edema. IMPRESSION: * Intrauterine at 37+ weeks. * Cholestasis of . * AMA. * GDMA2. PLAN: Induction of labor. We will proceed with Cytotec. Informed consent obtained. Risks and complications of induction including increased bleeding, increased risk of section, possibility of RDS in baby discussed with the patient. Options reviewed. All questions answered. The patient fully understands. She wishes to proceed with induction of labor. DO PRASHANTH Uriostegui/DIANA TID: [id number] RECEIPT: [id number]
[2025-05-26] MEDS: D5W/LACTATED RINGERS 1,000 ML IV SCH (18:34)
[2025-05-26] MEDS: MILK OF MAGNESIA 30ML SUSP PO ONE (22:00)
--- NOTE | 2025-05-26 22:07 | DVHPN2 ---
OB Labor Progress Note Date and Time Seen Date Seen: May 26, 2025 Time Seen: 21:55 Subjective Patient reports: No new complaints Subjective Comment SVE CX 1.5/60/-2 Monitoring Method Monitoring Method: External Heart Rate Heart Rate Baseline: 145 Heart Rate Variability: Moderate Presence of FHR Accelerations: Yes Presence of FHR Decelerations: No Changes in Trends of Patterns: No Contractions Contractions Frequency: Occasional Contractions Intensity: Mild Contractions Resting Tone: Relaxed Membranes Membranes: Intact Vaginal Exam Vag Exam Deferred: Yes Vaginal Exam Dilation: 1 (1.5) Vaginal Exam Effacement: 60 Vaginal Exam Station: -2 Vaginal Exam Presentation: VTX Vaginal Exam Show: None Medications Medications - Pitocin: No Medication - Other Misoprostal 50 mcg p.o. Lab Results Lab Results Current Medications Medications (Trade) Dose Ordered Sig/Jaspal Start Time Stop Time Status Last Admin Dose Admin Lactated Ringer's 1,000 ml @ 125 mls/hr Q8H 05/26/25 09:15 05/26/25 10:23 125 MLS/HR Melissa Zaragoza (Tucks) 1 pad PRN PRN 05/26/25 09:15 05/26/25 10:22 1 PAD Sodium Lauryl Sulfate (Phisoderm) 240 ml PRN PRN 05/26/25 09:15 05/26/25 10:22 240 ML Benzocaine (Dermoplast) 1 applic PRN PRN 05/26/25 09:15 05/26/25 10:23 1 APPLIC Butorphanol Tartrate (Stadol Injection) 1 mg Q4HPRN PRN 05/26/25 09:15 Butorphanol Tartrate (Stadol Injection) 2 mg Q4HPRN PRN 05/26/25 09:15 Misoprostol (Cytotec) 50 mcg Q4HPRN PRN 05/26/25 09:15 05/26/25 18:29 50 MCG Lidocaine HCl (Xylocaine) 20 ml ONCE PRN 05/26/25 09:15 Ursodiol (Actigall) 300 mg Q8H 05/26/25 11:00 05/26/25 10:19 DC Ursodiol (Actigall) 300 mg Q8H 05/26/25 12:00 05/26/25 19:49 300 MG Dextrose/Lactated Ringer's 1,000 ml @ 125 mls/hr Q8H 05/26/25 17:45 05/26/25 18:34 125 MLS/HR Magnesium Hydroxide (Milk Of Magnesia Oral Suspension) 30 ml ONCE ONCE 05/26/25 22:00 05/26/25 22:01 UNV Laboratory Tests Test 05/26/25 21:36 05/26/25 09:55 05/26/25 09:31 Range/Units POC Glucose 83 70-106 mg/dl Urine Color Yellow Yellow Urine Clarity Turbid H Clear Urine pH 6.5 5.0-9.0 Urine Specific [place] 1.020 1.001-1.035 Urine Protein Trace H Negative Urine Ketones Negative Negative Urine Blood 2+ H Negative /uL Urine Nitrite Negative Negative Urine Bilirubin Negative Negative Urine Urobilinogen Normal Negative mg/dL Urine Leukocyte Esterase Negative Negative /uL Urine RBC 94 0 - 4 /hpf Urine Microscopic WBC 9 H 0-5 /HPF Urine Squamous Epithelial Cells Few <5 /hpf Urine Bacteria Few H None Seen /hpf Urine Mucus Few None Seen Urine Glucose Normal Normal mg/dL Urine Opiates Screen Neg NEGATIVE Urine Fentanyl Screen Neg NEGATIVE Urine Barbiturates Screen Neg NEGATIVE Urine Phencyclidine Screen Neg NEGATIVE Urine Amphetamines Screen Neg NEGATIVE Urine Benzodiazepines Screen Neg NEGATIVE Urine Cocaine Screen Neg NEGATIVE Urine Cannabinoids Screen Neg NEGATIVE White Blood Count 4.5 4.4-10.8 10^3/uL Red Blood Count 4.96 4.0-5.20 10^6/uL Hemoglobin 13.5 12.2-16.2 g/dL Hematocrit 41.1 36.0-46.0 % Mean Corpuscular Volume 82.8 80.0-100.0 fL Mean Corpuscular Hemoglobin 27.2 L 28.0-32.0 pg Mean Corpuscular Hemoglobin Concent 32.9 32.0-36.0 g/dL Red Cell Distribution Width 16.9 H 11.8-14.3 % Platelet Count 198 140-450 10^3/uL Mean Platelet Volume 8.9 6.9-10.8 fL Neutrophils (%) (Auto) 64.6 37.0-80.0 % Lymphocytes (%) (Auto) 27.6 10.0-50.0 % Monocytes (%) (Auto) 7.0 0.0-12.0 % Eosinophils (%) (Auto) 0.5 0.0-7.0 % Basophils (%) (Auto) 0.3 0.0-2.0 % Neutrophils # (Auto) 2.9 1.6-8.6 10 ^3/uL Lymphocytes # (Auto) 1.2 0.4-5.4 10 ^3/uL Monocytes # (Auto) 0.3 0-1.3 10 ^3/uL Eosinophils # (Auto) 0 0-0.8 10 ^3/uL Basophils # (Auto) 0 0-0.2 10 ^3/uL Nucleated Red Blood Cells 0.1 % Prothrombin Time 10.2 9.3-11.8 sec Prothrombin Time INR 0.96 0.9-1.15 Activated Partial Thromboplast Time 30.0 24.5-34.5 SEC Sodium Level 140 136-145 mmol/L Potassium Level 3.9 3.5-5.1 mmol/L Chloride Level 109 H 98-107 mmol/L Carbon Dioxide Level 19 L 20-31 mmol/L Anion Gap 12 5-15 Blood Urea Nitrogen 9 9-23 mg/dL Creatinine 0.68 0.550-1.02 mg/dL Glomerular Filtration Rate Calc 116 >90 mL/min BUN/Creatinine Ratio 13.2 10.0-20.0 Serum Glucose 106 74-106 mg/dL Calcium Level 9.9 8.7-10.4 mg/dL Total Bilirubin 0.3 0.2-1.0 mg/dL Aspartate Amino Transferase (AST) 16 13-40 U/L Alanine Aminotransferase (ALT) < 9 7-40 U/L Alkaline Phosphatase 146 H 46-116 U/L Total Protein 6.6 5.7-8.2 g/dL Albumin 4.0 3.2-4.8 g/dL Treponema pallidum Antibody Non-reactive Negative Hepatitis C Antibody Negative Negative Assessment Assessment seen by ok Plan Plan Give MOM for constipation and impaction Continue with the Misoprostal for cervical ripening Plan discussed with: Patient (Patient agreed with p.o.c ) Visit Coding OBGYN Date of Service: May 26, 2025 Billing Provider: JERONIMO DEJESUS DO AIRLINE RADIO OPERATOR Common Visit Codes: [id number] INP/OBS CARE (MOD) AIRLINE RADIO OPERATOR Consultation Codes: [id number] CONSULT <20MIN BECKY EDEN 2024 22:07
--- NOTE | 2025-05-27 07:54 | DVHPN2 ---
Chief Complaints Patient reports: No new complaints Nursing reports: No new complaints Objective Medications Current Medications Medications (Trade) Dose Ordered Sig/Jaspal Route PRN Reason Start Time Stop Time Status Last Admin Benzocaine (Dermoplast) 1 applic PRN PRN TOP PERINEAL AREA DISCOMFORT 05/26/25 09:15 05/26/25 10:23 Butorphanol Tartrate (Stadol Injection) 1 mg Q4HPRN PRN IV MODERATE PAIN (4-6 PAIN SCALE) 05/26/25 09:15 Butorphanol Tartrate (Stadol Injection) 2 mg Q4HPRN PRN IV SEVERE PAIN (7-10 PAIN SCALE) 05/26/25 09:15 Dextrose/Lactated Ringer's 1,000 ml @ 125 mls/hr Q8H IV 05/26/25 17:45 05/27/25 06:29 Lactated Ringer's 1,000 ml @ 125 mls/hr Q8H IV 05/26/25 09:15 05/26/25 10:23 Lidocaine HCl (Xylocaine) 20 ml ONCE PRN IJ PERINEAL AREA DISCOMFORT 05/26/25 09:15 Misoprostol (Cytotec) 50 mcg Q4HPRN PRN PO CERVICAL RIPENING 05/26/25 09:15 05/26/25 22:40 Sodium Lauryl Sulfate (Phisoderm) 240 ml PRN PRN TOP PERINEAL AREA DISCOMFORT 05/26/25 09:15 05/26/25 10:22 Ursodiol (Actigall) 300 mg Q8H PO 05/26/25 12:00 05/27/25 03:49 Witch Mila (Tucks) 1 pad PRN PRN TOP PERINEAL AREA DISCOMFORT 05/26/25 09:15 05/26/25 10:22 Others VE-2CM/60/-2 Studies Laboratory Tests 05/26/25 09:31 Test 05/26/25 09:31 Range/Units Serum Glucose 106 74-106 mg/dL Ass/Plan Assessment IOL FOR CHOLESTASIS Plan [employer] [employer] SU[employer] CARE Visit Coding OBGYN Date of Service: May 27, 2025 Billing Provider: JERONIMO DEJESUS DO MANAGER NICU Common Visit Codes: [id number] INP/OBS CARE(HIGH) MANAGER NICU Procedure Codes: 65521-17- NON-STRESS TEST JERONIMO DEJESUS DO May 27, 2025 07:54
[2025-05-27] MEDS ORDERED: LACT. RINGERS/OXYTOCIN 20UNITS 500 ML IV ONE ×2 (08:15→08:45)
[2025-05-27] MEDS: NALOXONE HCL 0.4 MG/ML VIAL IV ONE ×2 (09:00→11:30)
[2025-05-27] MEDS: LIDOCAINE HCL 2 %PF INJ 10ML AMP IJ ONE ×2 (09:00→21:08)
[2025-05-27] MEDS: LACT. RINGERS/OXYTOCIN 20UNITS 1,000 ML IV SCH (09:01)
[2025-05-27] MEDS ORDERED: ONDANSETRON HCL 4 MG/2 ML VIAL IV PRN ×3 (10:00→22:15)
[2025-05-27] MEDS: fentaNYL CITRATE 100 MCG/2 ML VL ONE (11:10)
--- NOTE | 2025-05-27 11:29 | EPIDURAL ---
Anesthesia Procedural Note - Epidural Date: May 27, 2025 Informed consent obtained?: Yes Medication Administered: Fentanyl 100 mcg 2% Lidocaine Administered: 5 Medication Administered: ePHEDrine 5 mg IV Spinal level of insertion: L2-L3 Test dose of lidocaine & Epine: Negative Infusion started: Yes Start time: 10:35 End time: 11:20 YASMANY FLANAGAN MD May 27, 2025 11:29
[2025-05-27] MEDS ORDERED: SODIUM CHLORIDE 0.9% 500 ML IV PRN (11:30)
[2025-05-27] MEDS ORDERED: fentaNYL 400mCg/200ml W ROPIVA 200 ML EPI SCH (11:30)
[2025-05-27] MEDS: fentaNYL CITRATE 100 MCG/2 ML VL IV ONE ×2 (11:30→15:16)
[2025-05-27] MEDS: LIDOCAINE 2%HCL (LOCAL ANESTH.) INJ 10ml MDV IJ ONE (11:30)
[2025-05-27] MEDS: ONDANSETRON HCL 4 MG/2 ML VIAL ONE (11:30)
[2025-05-27] MEDS ORDERED: LACTATED RINGER'S 500 ML IV ONE (11:30)
[2025-05-27] MEDS: ROPIVACAINE HCL 100 ML ONE ×2 (15:14→20:16)
[2025-05-27] MEDS ORDERED: PHENYLEPHRINE HCL 10 MG/ML VL IV ONE (16:14)
[2025-05-27] MEDS ORDERED: METHYLERGONOVINE MALEATE 0.2 MG/ML AMP IM PRN (19:45)
--- NOTE | 2025-05-27 20:58 | DVHPN2 ---
CNM Labor Progress Note Date and Time Seen Date Seen: May 27, 2025 Time Seen: 19:35 Subjective Patient reports: No new complaints Objective Vital Signs VSS Monitoring Method Monitoring Method: External Heart Rate Heart Rate Baseline: 155 Heart Rate Variability: Minimal, Moderate Presence of FHR Accelerations: Yes Presence of FHR Decelerations: Yes Heart Rate Type of Decel: Variable Decelerations, Late Decelerations Are all 5 Components of the FH: Yes Contractions Contractions Frequency: Other Duration of Contraction: 90 Contractions Intensity: Moderate Contractions Resting Tone: Relaxed Membranes Membranes: Intact Vaginal Exam Vag Exam Deferred: No Vaginal Exam Dilation: 5 Vaginal Exam Effacement: 80 Vaginal Exam Station: -2 Vaginal Exam Presentation: VTX Vaginal Exam Show: Small Medications Medications - Pitocin: Yes Medication - Epidural: Yes Lab Results Lab Results Vital Signs Date Time Temp Pulse Resp B/P (MAP) Pulse Ox O2 Delivery O2 Flow Rate FiO2 05/28/25 05:00 96 16 117/68 (84) 99 05/28/25 03:00 98.5 98.5 05/27/25 23:05 Room Air 05/27/25 22:35 8.0 I & O 05/28/25 07:00 Output Total 500 ml Balance -500 ml Output Urine Total 500 ml Current Medications Medications (Trade) Dose Ordered Sig/Jaspal Start Time Stop Time Status Last Admin Dose Admin Lactated Ringer's 1,000 ml @ 125 mls/hr Q8H 05/26/25 09:15 05/27/25 11:19 125 MLS/HR Witlilian Zaragoza (Tucks) 1 pad PRN PRN 05/26/25 09:15 05/26/25 10:22 1 PAD Sodium Lauryl Sulfate (Phisoderm) 240 ml PRN PRN 05/26/25 09:15 05/26/25 10:22 240 ML Benzocaine (Dermoplast) 1 applic PRN PRN 05/26/25 09:15 05/26/25 10:23 1 APPLIC Misoprostol (Cytotec) 50 mcg Q4HPRN PRN 05/26/25 09:15 05/28/25 00:51 DC 05/26/25 22:40 50 MCG Lidocaine HCl (Xylocaine) 20 ml ONCE PRN 05/26/25 09:15 Ursodiol (Actigall) 300 mg Q8H 05/26/25 11:00 05/26/25 10:19 DC Ursodiol (Actigall) 300 mg Q8H 05/26/25 12:00 05/28/25 00:51 DC 05/27/25 19:33 300 MG Dextrose/Lactated Ringer's 1,000 ml @ 125 mls/hr Q8H 05/26/25 17:45 05/27/25 06:29 125 MLS/HR Magnesium Hydroxide (Milk Of Magnesia Oral Suspension) 30 ml ONCE ONCE 05/26/25 22:00 05/26/25 22:02 DC 05/26/25 22:00 30 ML Oxytocin 1,000 ml @ 6 ml/hr Q24H 05/27/25 08:15 05/28/25 00:51 DC 05/27/25 09:01 3 ML/HR Naloxone HCl (Narcan) 0.2 mg PRN ONCE 05/27/25 09:00 05/27/25 09:09 DC Ephedrine Sulfate (ePHEDrine SULFATE) 10 mg PRN ONCE 05/27/25 09:00 05/27/25 09:09 DC 05/27/25 15:09 10 MG Lidocaine HCl (Xylocaine-Pf 2% Injection) 10 ml ONCE ONCE 05/27/25 09:00 05/27/25 09:10 DC Fentanyl Citrate 100 mcg ONCE ONCE 05/27/25 11:00 05/27/25 11:20 DC 05/27/25 15:16 100 MCG Sodium Chloride 500 ml @ 500 mls/hr Q1H PRN 05/27/25 11:30 Naloxone HCl (Narcan) 0.2 mg PRN ONCE 05/27/25 11:30 05/27/25 11:43 DC Ephedrine Sulfate (ePHEDrine SULFATE) 10 mg PRN ONCE 05/27/25 11:30 05/27/25 11:43 DC Fentanyl Citrate 100 mcg ONCE ONCE 05/27/25 11:30 05/27/25 11:43 DC Fentanyl/ Ropivacaine 200 ml @ 10 mls/hr UD 05/27/25 11:30 05/29/25 11:29 Lidocaine HCl (Xylocaine) 5 ml ONCE ONCE 05/27/25 11:30 05/27/25 11:43 DC Methylergonovine Maleate (Methergine) 0.2 mg PRN PRN 05/27/25 19:45 Cefazolin Sodium/ Dextrose 50 ml @ 50 mls/hr Q8HR 05/27/25 22:00 05/28/25 01:48 DC 05/27/25 22:00 50 MLS/HR Carboprost Tromethamine (Hemabate) 250 mcg Q20M PRN 05/27/25 21:15 05/27/25 21:56 DC 05/27/25 21:25 250 MCG Diphenoxylate HCl/ Atropine (Lomotil Tablet) 10 mg Q12HR 05/27/25 22:00 05/27/25 22:52 10 MG Oxytocin 1,000 ml @ 125 mls/hr Q8H ONCE 05/27/25 21:15 05/28/25 05:14 DC Cefazolin Sodium 50 ml @ 100 mls/hr Q8H 05/27/25 21:15 05/28/25 00:10 DC Diphenhydramine HCl (Benadryl Injection) 25 mg Q4HP PRN 05/27/25 22:15 Ondansetron HCl (Zofran) 4 mg Q4HP PRN 05/27/25 22:15 Naloxone HCl (Narcan) 0.2 mg Q5M PRN 05/27/25 22:15 05/27/25 22:21 DC Hydromorphone HCl (Dilaudid Injection) 0.5 mg Q15M PRN 05/27/25 22:15 05/27/25 22:46 DC Dexamethasone Sodium Phosphate (Decadron Injection) 10 mg RADAR ENGINEER PRN 05/27/25 22:15 05/27/25 22:18 DC Diagnostic Test (Pha) (Accu-Chek Comfort Curve T) 1 strip ONCE ONCE 05/27/25 22:15 05/27/25 22:18 DC Hydralazine HCl (Apresoline Injection) 5 mg Q10M PRN 05/27/25 22:15 05/27/25 23:06 DC Midazolam HCl (Versed Injection) 1 mg Q10M PRN 05/27/25 22:15 05/27/25 22:59 DC Ephedrine Sulfate (ePHEDrine SULFATE) 10 mg Q10M PRN 05/27/25 22:15 05/27/25 22:59 DC Rho Immune Globulin (Rhogam) 300 mcg ONCE ONCE 05/28/25 00:00 05/28/25 00:10 DC 05/28/25 04:37 300 MCG Cefazolin Sodium/ Dextrose 50 ml @ 50 mls/hr Q8HR 05/28/25 06:00 05/29/25 02:00 05/28/25 05:49 50 MLS/HR Acetaminophen (Ofirmev) 1,000 mg [id number] PRN 05/28/25 02:00 05/29/25 01:59 Laboratory Tests Test 05/28/25 06:12 05/28/25 04:06 05/26/25 09:55 05/26/25 09:31 Range/Units White Blood Count 9.3 4.4-10.8 10^3/uL Red Blood Count 4.37 4.0-5.20 10^6/uL Hemoglobin 11.9 L 12.2-16.2 g/dL Hematocrit 36.7 36.0-46.0 % Mean Corpuscular Volume 84.0 80.0-100.0 fL Mean Corpuscular Hemoglobin 27.3 L 28.0-32.0 pg Mean Corpuscular Hemoglobin Concent 32.6 32.0-36.0 g/dL Red Cell Distribution Width 16.9 H 11.8-14.3 % Platelet Count 188 140-450 10^3/uL Mean Platelet Volume 8.7 6.9-10.8 fL Neutrophils (%) (Auto) 75.0 37.0-80.0 % Lymphocytes (%) (Auto) 16.4 10.0-50.0 % Monocytes (%) (Auto) 8.2 0.0-12.0 % Eosinophils (%) (Auto) 0.2 0.0-7.0 % Basophils (%) (Auto) 0.2 0.0-2.0 % Neutrophils # (Auto) 7.0 1.6-8.6 10 ^3/uL Lymphocytes # (Auto) 1.5 0.4-5.4 10 ^3/uL Monocytes # (Auto) 0.8 0-1.3 10 ^3/uL Eosinophils # (Auto) 0 0-0.8 10 ^3/uL Basophils # (Auto) 0 0-0.2 10 ^3/uL Nucleated Red Blood Cells 0.0 % POC Glucose 93 70-106 mg/dl Urine Color Yellow Yellow Urine Clarity Turbid H Clear Urine pH 6.5 5.0-9.0 Urine Specific [place] 1.020 1.001-1.035 Urine Protein Trace H Negative Urine Ketones Negative Negative Urine Blood 2+ H Negative /uL Urine Nitrite Negative Negative Urine Bilirubin Negative Negative Urine Urobilinogen Normal Negative mg/dL Urine Leukocyte Esterase Negative Negative /uL Urine RBC 94 0 - 4 /hpf Urine Microscopic WBC 9 H 0-5 /HPF Urine Squamous Epithelial Cells Few <5 /hpf Urine Bacteria Few H None Seen /hpf Urine Mucus Few None Seen Urine Glucose Normal Normal mg/dL Urine Opiates Screen Neg NEGATIVE Urine Fentanyl Screen Neg NEGATIVE Urine Barbiturates Screen Neg NEGATIVE Urine Phencyclidine Screen Neg NEGATIVE Urine Amphetamines Screen Neg NEGATIVE Urine Benzodiazepines Screen Neg NEGATIVE Urine Cocaine Screen Neg NEGATIVE Urine Cannabinoids Screen Neg NEGATIVE Prothrombin Time 10.2 9.3-11.8 sec Prothrombin Time INR 0.96 0.9-1.15 Activated Partial Thromboplast Time 30.0 24.5-34.5 SEC Sodium Level 140 136-145 mmol/L Potassium Level 3.9 3.5-5.1 mmol/L Chloride Level 109 H 98-107 mmol/L Carbon Dioxide Level 19 L 20-31 mmol/L Anion Gap 12 5-15 Blood Urea Nitrogen 9 9-23 mg/dL Creatinine 0.68 0.550-1.02 mg/dL Glomerular Filtration Rate Calc 116 >90 mL/min BUN/Creatinine Ratio 13.2 10.0-20.0 Serum Glucose 106 74-106 mg/dL Calcium Level 9.9 8.7-10.4 mg/dL Total Bilirubin 0.3 0.2-1.0 mg/dL Aspartate Amino Transferase (AST) 16 13-40 U/L Alanine Aminotransferase (ALT) < 9 7-40 U/L Alkaline Phosphatase 146 H 46-116 U/L Total Protein 6.6 5.7-8.2 g/dL Albumin 4.0 3.2-4.8 g/dL Treponema pallidum Antibody Non-reactive Negative Hepatitis C Antibody Negative Negative Consulting with Regarding Consulting with Dr Quigley re: Labor statuus and FHR Tracing Category II Assessment Assessment IUP at 37w 3d GDMA2 Cholestasis of IOL for above Category II FHR Tracing Plan Plan Reduced Oxytocin dosage to half Intrauterine resuscitative measures Nursing interventions to resolve FHR deceleration Management options discussed with patient by both Dr. Quigley & HILARIO SHIRLEY recommends to patient, Primary C- section considering lack of progress and category II FHR Tracing or To stop Oxytocin, Allow patient to rest and re-start oxytocin in AM Patient Initially declined Primary C- section. At 20:39pm, pt decides she will rather go for Section delivery Dr Quigley Informed and nursing preparation process for C- section procedure started Dr Quigley informed; will come in immediately for the procedure Plan discussed with: Patient, Spouse Visit Coding OBGYN Date of Service: May 27, 2025 Billing Provider: DANIEL GOMEZ CNM SHIPWRIGHT APPRENTICE Common Visit Codes: [id number] INP/OBS CARE(HIGH) SHIPWRIGHT APPRENTICE Procedure Codes: 86436-59- NON-STRESS TEST DANIEL GOMEZ CNM May 27, 2025 20:58
[2025-05-27] MEDS ORDERED: DIPHENOXYLATE W/ATROPINE 2.5 MG TAB PO ONE (21:00)
[2025-05-27] MEDS: CARBOPROST TROMETHAMINE 250 MCG/1ML VIAL IM ONE (21:13)
[2025-05-27] MEDS ORDERED: ceFAZolin 1GM/50ML 50 ML IV SCH (21:15)
[2025-05-27] MEDS: LACT. RINGERS/OXYTOCIN 20UNITS 1,000 ML IV ONE (21:15)
[2025-05-27] MEDS ORDERED: fentaNYL CITRATE 100 MCG/2 ML VL ONE (21:16)
[2025-05-27] MEDS ORDERED: MORPHINE SULF PF 5 MG/10 ML VIAL ONE (21:16)
[2025-05-27] MEDS ORDERED: MIDAZOLAM HCL 2MG/2ML 2ml VIAL (1mg/ml) ONE (21:16)
[2025-05-27] MEDS ORDERED: DOCU-94 PO (21:24)
[2025-05-27] MEDS ORDERED: HYDR-4072 PO (21:24)
[2025-05-27] MEDS ORDERED: IBUP-1456 PO (21:24)
[2025-05-27] MEDS: CARBOPROST TROMETHAMINE 250 MCG/1ML VIAL IM PRN (21:25)
[2025-05-27] MEDS: ceFAZolin 2 GM/D5W50ml 50 ML IV SCH (22:00)
--- NOTE | 2025-05-27 22:06 | DVHHP ---
ADMIT DATE: 05/26/2025 CHIEF COMPLAINT: Failure to progress, nonreassuring heart tracing, fetus at risk. HISTORY OF PRESENT ILLNESS: The patient is a 34-year-old 8, para 4 with EDC 06/14, estimated gestational age of 37 plus weeks, admitted for induction of labor secondary to cholestasis of . The patient was placed on Actigall b.i.d., continued with itching. She was up to 3 times a day, still was quite miserable. Subsequently, the patient was admitted for induction. She received Cytotec x5 followed by a Contreras balloon and was placed on Pitocin; however, the patient's cervical exam did not change for more than 12 hours and having late decelerations. Subsequently, the patient was taken for a primary secondary to nonreassuring heart tracing, fetus at risk, failure to progress ____. PAST MEDICAL HISTORY: Gestational diabetes. PAST SURGICAL HISTORY: D and C. SOCIAL HISTORY: None. FAMILY HISTORY: None. OBSTETRIC AND GYNECOLOGIC HISTORY: Four normal vaginal deliveries. REVIEW OF SYSTEMS: Consistent with HPI. PHYSICAL EXAMINATION: VITAL SIGNS: Stable, afebrile. HEENT: Within normal limits. CARDIOVASCULAR: Regular rate and rhythm. LUNGS: Clear to auscultation. BREASTS: Symmetrical, no masses. ABDOMEN: Gravid. Positive heart. PELVIC: Cervix 4 cm, 70%, -3. EXTREMITIES: No clubbing, cyanosis or edema. IMPRESSION: * Intrauterine at 37 plus weeks with cholestasis of . * Failed induction, failure to progress. * AMA. * GDMA2. * Nonreassuring heart tracing, fetus at risk. PLAN: Primary low transverse section. Informed consent obtained. Options discussed with the patient. The patient fully understands. Risks and complications of discussed with the patient, possibility of PE, DVT, bleeding, and infection. The patient wishes to proceed with the planned procedure. DO PRASHANTH Uriostegui/JOHNNY/ANTOINE TID: [id number] RECEIPT: [id number]
--- NOTE | 2025-05-27 22:07 | DVHOP2 ---
Operative Report DATE OF OPERATION: 05/27/25 PREOPERATIVE DIAGNOSES: iup at 37+wks induction of labor for cholestasis of preg,ftp,fetus at risk ,non reassuring fht,ama,gdma2,morbid obesity POSTOPERATIVE DIAGNOSES: same,op,nuchal cord SURGEON: Laura Quigley D.O./jacqueline ANESTHESIOLOGIST: cristin TYPE OF ANESTHESIA : spinal CONSENT: The patient was informed of the risks and benefits of the procedure. The patient was informed of the risks and benefits of the procedure. These include but are not limited to , complications of anesthesia, postoperative infection, incomplete relief of symptoms, recurrence of symptoms, damage to blood vessels, nerves and tendons, deep venous thrombosis, pulmonary embolism and possible need for repeat surgery in the future. FINDINGS: Baby [b] with Apgars of [6] and [8]. Grossly normal appearing tubes and ovaries. PROCEDURES: Primary low transverse section. PROCEDURE IN DETAIL: The patient was taken to the operating room. She already had an epidural in place. She was then placed in supine position with a leftward tilt. A Pfannenstiel skin incision was made 2 cm above the symphysis pubis. This incision was carried to the underlying layer of fascia. The fascia was nicked in the midline. The incision was extended laterally. The superior aspect of the fascial incision was grasped and elevated. The same procedure was done to the inferior aspect of the fascial incision. The rectus muscles were then in the midline. Peritoneum was identified and entered. Peritoneal incision was extended superiorly and inferiorly with good visualization of the bladder. Bladder blade was inserted. Vesicouterine peritoneum was identified and entered. Lower uterine segment was incised in a transverse fashion. The infant was delivered from vertex presentation. bbay was op with nuchal cordx1. was baby with Apgars and . Placenta was then removed manually. Uterus was exteriorized and cleared of all clots and debris. The incision was repaired using 0 Vicryl in a double- layered fashion. No bleeding was noted. Uterus was then returned to the abdomen. The gutters were cleared off all clots and debris. Peritoneum was closed using 0 Vicryl, fascia was closed using 0 Maxon, and skin was closed using mahesh. The patient tolerated the procedure well. She was taken to the recovery room in stable condition. ESTIMATED BLOOD LOSS: Estimated blood loss was noted to be 1000 mL. Visit Coding OBGYN Date of Service: May 27, 2025 Billing Provider: LAURA QUIGLEY DO TURNING MACHINE OPERATOR Common Visit Codes: [id number] OBS CARE (HIGH) TURNING MACHINE OPERATOR Procedure Codes: [id number] DELIVERY ONLY LAURA QUIGLEY DO May 27, 2025 22:07
--- NOTE | 2025-05-27 22:09 | POSTOP ---
Post-Operative Note Post-Operative Note Preop Diagnosis iup at 37wks ftp,iol for cholestasis,ama,gdma2,morbid obesity,non reassuring fht, fetus at risk Postop Diagnosis: same,op,nuchal cordx1 Operation performed pltcs Specimen baby boy,op,nuchal cord,apgars 6-8 Anesthesia: Regional Anesthesiologist: cristin Blood Loss(fluid mgmt) 1000ml Surgeon Jeronimo Quigley Certified Alcohol Drug Counselor jacqueline Implant na Complications & Mgmt none Date 05/27/25 Time 22:07 Visit Coding OBGYN Date of Service: May 27, 2025 Billing Provider: JERONIMO QUIGLEY DO WAITER/WAITRESS DINING CAR Common Visit Codes: [id number] OBS CARE (HIGH) WAITER/WAITRESS DINING CAR Procedure Codes: [id number] DELIVERY ONLY JERONIMO QUIGLEY DO May 27, 2025 22:09
[2025-05-27] MEDS ORDERED: NALOXONE HCL 0.4 MG/ML VIAL IV PRN (22:15)
[2025-05-27] MEDS ORDERED: HYDROmorphone HCL 2 MG/ML VL/or syr IV PRN (22:15)
[2025-05-27] MEDS ORDERED: ACCU-CHEK COMFORT CURVE STRIP VI ONE (22:15)
[2025-05-27] MEDS ORDERED: MIDAZOLAM HCL 2MG/2ML 2ml VIAL (1mg/ml) IV PRN (22:15)
[2025-05-27] MEDS ORDERED: hydrALAZINE HCL 20 MG/ML VL IV PRN (22:15)
[2025-05-27 22:35] VITALS: PULSE 88; RESP 20; O2SAT 100
[2025-05-27] MEDS: DIPHENOXYLATE W/ATROPINE 2.5 MG TAB ONE (22:40)
[2025-05-27] MEDS: DIPHENOXYLATE W/ATROPINE 2.5 MG TAB PO SCH (22:43)
[2025-05-27 23:00] VITALS: BP 112/85; PULSE 101; RESP 17; TEMP 98.6
[2025-05-27 23:59] LABS: Hematocrit 38.6 % (36.0-46.0); Hemoglobin 12.7 g/dL (12.2-16.2); Mean Corpuscular Hemoglobin 27.4 pg (28.0-32.0); Mean Corpuscular Volume 83.5 fL (80.0-100.0); Nucleated Red Blood Cells % 0.0 %
[2025-05-28] VITALS (17 sets, daily range): BP systolic 102–120; BP diastolic 56–72; PULSE 69–97; RESP 16–18; TEMP 97.9–99; O2SAT 96–100
[2025-05-28] MEDS ORDERED: ACETAMINOPHEN IV 1000 MG/100ML (10MG/ML) IV PRN (02:00)
[2025-05-28] MEDS: RHO (D) IMMUNE GLOBULIN 300 MCG INJ IM ONE (04:37)
[2025-05-28] MEDS: ceFAZolin 2 GM/D5W50ml 50 ML IV SCH (05:49)
[2025-05-28 06:35] LABS: Hematocrit 36.7 % (36.0-46.0); Hemoglobin 11.9 g/dL (12.2-16.2); Mean Corpuscular Hemoglobin 27.3 pg (28.0-32.0); Mean Corpuscular Volume 84.0 fL (80.0-100.0); Nucleated Red Blood Cells % 0.0 %
--- NOTE | 2025-05-28 07:36 | DVHPN2 ---
Progress Note Date Seen: May 28, 2025 Subjective S: Lochia minimal. Clear liquid diet well tolerated. Ambulating and voiding well w/o feeling dizzy or lightheaded. Pain relieved with IV analgesics. Passing flatus but no BM yet. w/o problem vital signs Vital Sign Date Time Temp Pulse Resp B/P (MAP) Pulse Ox O2 Delivery O2 Flow Rate FiO2 05/28/25 05:00 96 16 117/68 (84) 99 05/28/25 03:00 98.5 98.5 05/27/25 23:05 Room Air 05/27/25 22:35 8.0 Total Intake and Output 05/27/25 05/27/25 05/28/25 15:00 23:00 07:00 Output Total 500 ml Balance -500 ml medications Current Medications Medications Dose Ordered Sig/Jaspal Route Start Time Stop Time Status Last Admin Dose Admin Lactated Ringer's 1,000 ml @ 125 mls/hr Q8H IV 05/26/25 09:15 05/27/25 11:19 125 MLS/HR Witch Mila 1 pad PRN PRN TOP 05/26/25 09:15 05/26/25 10:22 1 PAD Sodium Lauryl Sulfate 240 ml PRN PRN TOP 05/26/25 09:15 05/26/25 10:22 240 ML Benzocaine 1 applic PRN PRN TOP 05/26/25 09:15 05/26/25 10:23 1 APPLIC Butorphanol Tartrate 1 mg Q4HPRN PRN IV 05/26/25 09:15 Cancel Butorphanol Tartrate 2 mg Q4HPRN PRN IV 05/26/25 09:15 Cancel Lidocaine HCl 20 ml ONCE PRN IJ 05/26/25 09:15 Dextrose/Lactated Ringer's 1,000 ml @ 125 mls/hr Q8H IV 05/26/25 17:45 05/27/25 06:29 125 MLS/HR Sodium Chloride 500 ml @ 500 mls/hr Q1H PRN IV 05/27/25 11:30 Fentanyl/ Ropivacaine 200 ml @ 10 mls/hr UD EPI 05/27/25 11:30 05/29/25 11:29 Ondansetron HCl 4 mg Q4HPRN PRN IV 05/27/25 10:00 Cancel Methylergonovine Maleate 0.2 mg PRN PRN IM 05/27/25 19:45 Diphenoxylate HCl/ Atropine 10 mg Q12HR PO 05/27/25 22:00 05/27/25 22:52 10 MG Ondansetron HCl 4 mg Q4HP PRN IV 05/27/25 21:15 Cancel Diphenhydramine HCl 25 mg Q4HP PRN IV 05/27/25 22:15 Ondansetron HCl 4 mg Q4HP PRN IV 05/27/25 22:15 Cefazolin Sodium/ Dextrose 50 ml @ 50 mls/hr Q8HR IV 05/28/25 06:00 05/29/25 02:00 05/28/25 05:49 50 MLS/HR Acetaminophen 1,000 mg [id number] PRN IV 05/28/25 02:00 05/29/25 01:59 laboratory and microbiology Laboratory Tests 05/28/25 06:12 05/26/25 09:31 Test 05/26/25 09:31 Range/Units Serum Glucose 106 74-106 mg/dL Objective A&O x3 NAD. Afebrile, VSS Chest: heart and lung sounds normal. Breasts: Nipples intact w/o cracks or soreness Abdomen: normal BS, soft, non-tender, no rebound or guarding, fundus firm @ U- 1, Lower abdominal Incision site with Sylke dressing on, same clean, dry and intact. No edema, erythema or induration Extremities: no edema or tenderness Lochia - minimal Labs: See record Assessment/Plan 34 yo now GP1 Post operative & ppd # s/p Primary Section doing well. AMA Blood Type: A Rh: Negative Will get RhoGam injection Breast feeding Rubella Immune Pain control with oral medications Bowel regimen: Increase fluid intake and fiber in diet, ambulate. Laxative PRN PP BCM Plan: Vasectomy Plan discussed with: Patient, Spouse Visit Coding OBGYN Date of Service: May 28, 2025 Billing Provider: DANIEL GOMEZ CNM [employer] MARSHAL Common Visit Codes: [id number] INP/OBS CARE(HIGH) DANIEL GOMEZ CNM May 28, 2025 07:36
[2025-05-28] MEDS ORDERED: LACTATED RINGER'S 1,000 ML IV SCH (08:15)
[2025-05-28] MEDS ORDERED: SODIUM CHLORIDE 0.9% 1,000 ML IV SCH (08:15)
[2025-05-28] MEDS ORDERED: BISACODYL 10 MG RECT SUPP PR PRN (08:15)
[2025-05-28] MEDS ORDERED: D5W/LACTATED RINGERS 1,000 ML IV SCH (08:15)
[2025-05-28] MEDS: diphenhdrAMINE HCL 50 MG/1 ML VL IV PRN (08:49)
[2025-05-28] MEDS: CEPHALEXIN 250 MG CAP PO SCH (09:24)
[2025-05-28] MEDS: IBUPROFEN 800 MG TAB PO PRN (09:25)
[2025-05-28] MEDS: DOCUSATE SOD 100 MG CAP PO SCH (10:45)
[2025-05-28] MEDS: SIMETHICONE 80 MG CHEWABLE TABLET PO SCH (12:34)
[2025-05-28] MEDS: HYDROcodone-ACET 5/325MG TAB PO PRN ×2 (14:09→23:17)
[2025-05-29 03:00] VITALS: BP 105/66; PULSE 79; TEMP 98.1; O2SAT 98
--- NOTE | 2025-05-29 06:05 | DVHPN2 ---
Chief Complaints Patient reports: No new complaints, Feels better (Postop day 2 section GDM cholestasis) Nursing reports: No new complaints, No abdominal pain, No chest pain, No dizziness, No cough Objective Vitals Vital Signs Date Time Temp Pulse Resp B/P (MAP) Pulse Ox O2 Delivery O2 Flow Rate FiO2 05/29/25 03:00 98.1 79 105/66 (79) 98 98.1 05/28/25 19:00 Room Air 05/28/25 15:00 16 05/27/25 22:35 8.0 Medications Current Medications Medications (Trade) Dose Ordered Sig/Jaspal Route PRN Reason Start Time Stop Time Status Last Admin Acetaminophen/ Hydrocodone Bitart ([place] 5/325MG Tab) 1 tab Q4HPRN PRN PO FOR PAIN 1-05/28/25 08:15 05/28/25 14:09 Acetaminophen/ Hydrocodone Bitart ([place] 5/325MG Tab) 2 tab Q4HPRN PRN PO FOR PAIN 7-05/28/25 08:15 05/28/25 23:17 Bisacodyl (Dulcolax Suppository) 10 mg DAILYP PRN IA FOR CONSTIPATION 05/28/25 08:15 Cephalexin (Keflex Capsule) 500 mg BID PO 05/28/25 10:00 05/28/25 21:14 Dimethicone (Mylicon Tab) 80 mg QID PO 05/28/25 12:00 05/28/25 23:18 Docusate Sodium (Colace Capsule) 100 mg Q12HR PO 05/28/25 10:00 05/28/25 21:14 Ibuprofen (Motrin Tablet) 800 mg Q8HP PRN PO BREAKTHROUGH PAIN 05/28/25 08:15 05/28/25 19:59 Lungs: Normal Cardiovascular: Normal Abdominal: Normal (Wound clean dry and intact uterus firm) Musculoskeletal: Normal Extremities: Normal Skin: Normal Neurological: Normal Studies Laboratory Tests 05/28/25 06:12 05/26/25 09:31 Test 05/26/25 09:31 Range/Units Serum Glucose 106 74-106 mg/dL Ass/Plan Assessment Postop day 2 GDM cholestasis of stable improved Plan Advance advanced care see orders SANTOS DIAZ DO May 29, 2025 06:05
[2025-05-29 07:00] VITALS: BP 115/78; PULSE 84; RESP 18; TEMP 98.7; O2SAT 97
[2025-05-29 11:00] VITALS: BP 130/73; PULSE 86; TEMP 98.7; O2SAT 97
[2025-05-29 15:00] VITALS: BP 126/76; PULSE 83; TEMP 98.2; O2SAT 95
[2025-05-29 19:00] VITALS: BP 120/64; PULSE 91; RESP 17; TEMP 98.3; O2SAT 98
[2025-05-29 23:00] VITALS: BP 128/69; PULSE 88; RESP 18; TEMP 98.1; O2SAT 98
--- NOTE | 2025-05-30 00:09 | DVHDS2 ---
Obstetrics Discharge Summary Obstetrics Discharge Summary Date of Admission: May 26, 2025 Date of Discharge: May 30, 2025 Reason For Admission: Induction of Labor Procedures: NST, Mgmt of Obstetrics Compli (cholestasis, GDM) Intrapartum Procedures: (primary LTCS) Procedures: Antibiotics, Hct/date:, Hgb/date: Operative Complicat: None Discharge Diagnosis: Term -Delivered Discharge Information: Activity (as tolerated, no heavy lifting and nothing in the vagina for 6 weeks), Diet (Routine), Medications (Rx sent), Instructions (Routine), Discharge to (Home), Accompanied by (partner), Discarge date (05/30/25) Visit Coding OBGYN Date of Service: May 30, 2025 Billing Provider: MENA DIAZ CNM STRIP MILL OPERATOR Common Visit Codes: [id number]/[id number] DISCH DAY <30MIN MENA DIAZ CNM May 30, 2025 00:09
--- NOTE | 2025-05-30 00:09 | DVHPN2 ---
Progress Note Date Seen: May 30, 2025 Subjective S: bleeding is less, eating food without issues, denies lightheaded/dizziness, pain well controlled with oral medications, no concerns with urinating, passing flatus, has BM already, ambulating well, and formula vital signs Vital Sign Date Time Temp Pulse Resp B/P (MAP) Pulse Ox O2 Delivery O2 Flow Rate FiO2 05/29/25 23:00 98.1 88 18 128/69 (88) 98 98.1 05/29/25 18:30 Room Air medications Current Medications Medications Dose Ordered Sig/Jaspal Route Start Time Stop Time Status Last Admin Dose Admin Patricialilian Mila 1 pad PRN PRN TOP 05/26/25 09:15 05/26/25 10:22 1 PAD Sodium Lauryl Sulfate 240 ml PRN PRN TOP 05/26/25 09:15 05/26/25 10:22 240 ML Benzocaine 1 applic PRN PRN TOP 05/26/25 09:15 05/26/25 10:23 1 APPLIC Butorphanol Tartrate 1 mg Q4HPRN PRN IV 05/26/25 09:15 Cancel Butorphanol Tartrate 2 mg Q4HPRN PRN IV 05/26/25 09:15 Cancel Ondansetron HCl 4 mg Q4HPRN PRN IV 05/27/25 10:00 Cancel Ondansetron HCl 4 mg Q4HP PRN IV 05/27/25 21:15 Cancel Diphenhydramine HCl 25 mg Q4HP PRN IV 05/27/25 22:15 Docusate Sodium 100 mg Q12HR PO 05/28/25 10:00 05/29/25 21:39 100 MG Dimethicone 80 mg QID PO 05/28/25 12:00 05/29/25 18:28 80 MG Bisacodyl 10 mg DAILYP PRN SC 05/28/25 08:15 Ibuprofen 800 mg Q8HP PRN PO 05/28/25 08:15 05/29/25 21:40 800 MG Acetaminophen/ Hydrocodone Bitart 1 tab Q4HPRN PRN PO 05/28/25 08:15 05/28/25 14:09 1 TAB Acetaminophen/ Hydrocodone Bitart 2 tab Q4HPRN PRN PO 05/28/25 08:15 05/29/25 23:37 2 TAB Cephalexin 500 mg BID PO 05/28/25 10:00 05/29/25 21:39 500 MG laboratory and microbiology Laboratory Tests 05/28/25 06:12 05/26/25 09:31 Test 05/26/25 09:31 Range/Units Serum Glucose 106 74-106 mg/dL Objective O: VSS Chest: heart sounds normal and lung sounds clear bilaterally Abd: soft, non-tender, fundus at U/firm/midline, active bowel sounds, no rebound or guarding Incision: sylke dressing open to air, clean/dry/intact Ext: Non-tender, No edema, 2+ BLE DTRs Lochia: minimal See lab results Problems(with codes): (1) S/P primary low transverse Assessment/Plan A: 34yo now POD#3 s/p primary Rh+ Rubella Immune Breast and formula feeding P: D/C home today Rx sent to pharmacy precautions and preeclampsia warning signs reviewed Instructed to review BCM options on [email or web address].org and discuss it at PP visit F/U with [facility] office in 2 weeks Plan discussed with: Patient, Spouse Visit Coding OBGYN Date of Service: May 30, 2025 Billing Provider: MENA DIAZ CNM STATIONARY EQUIPMENT MECHANIC Common Visit Codes: [id number] INP/OBS CARE(HIGH) MENA DIAZ CNM May 30, 2025 00:09
[2025-05-30] MEDS ORDERED: PREN1TAB71 PO (00:11)
[2025-05-30] MEDS ORDERED: IBUP-1456 PO (00:11)
[2025-05-30 03:12] VITALS: BP 126/78; PULSE 73; RESP 18; TEMP 98.5; O2SAT 100
[2025-05-30 07:00] VITALS: BP 138/70; PULSE 76; RESP 16; TEMP 98; O2SAT 100
[2025-05-30 11:00] VITALS: BP 122/87; PULSE 87; RESP 18; TEMP 98.3; O2SAT 100
[2025-05-30 15:00] VITALS: BP 128/72; PULSE 68; RESP 18; TEMP 97.9; O2SAT 100
== END 2025-05-30 16:20 | disposition home or self-care (01) | DRG 787 ==
LOC: LDRP 08:45
PROVIDERS: ADMIT Obstetrics & Gynecology; ATTEND Obstetrics & Gynecology
PROC: 10D00Z1 Extraction of Products of Conception, Low, Open Approach (ICD-10-PCS; principal; 2025-05-27 21:28)
DX: O76 Abnormality in fetal heart rate and rhythm complicating labor and delivery (principal); O26.643 Intrahepatic cholestasis of pregnancy, third trimester; O99.214 Obesity complicating childbirth; K76.89 Other specified diseases of liver; O24.429 Gestational diabetes mellitus in childbirth, unspecified control; E66.01 Morbid (severe) obesity due to excess calories; O69.81X0 Labor and delivery complicated by cord around neck, without compression, not applicable or unspecified; O62.2 Other uterine inertia; Z37.0 Single live birth; Z3A.37 37 weeks gestation of pregnancy; Z67.11 Type A blood, Rh negative; O26.893 Other specified pregnancy related conditions, third trimester
CPT/HCPCS: 36415; 59025; 80053; 80307; 81001; 81002; 82948; 82962; 85025; 85610; 85730; 86780; 86803; 86850; 86900; 86901; 90384; 94760; 94762; 96360; 96361; 96365; 96366; 96372; A4344; G0378; J0131; J2250; J2405; J2590